=== PATIENT | male | born 1985 | race Caucasian/White ===

== ENCOUNTER 2020-09-30 18:28 | Emergency (ER) | payer MEDICAID, SELFPAY ==
[2020-09-30 18:40] VITALS: BP 123/70; PULSE 84; PULSE 86; RESP 19; TEMP 36.1; O2SAT 100; BMI 24.4
--- NOTE | 2020-09-30 19:11 | ED_ITS ---
HPI - General Adult General Chief complaint: General Medical Stated complaint: covid symptoms Time Seen by Provider: 09/30/20 19:11 History of Present Illness HPI narrative: Patient complains of body aches fatigue cough and chest pain when he coughs, no shortness of breath and a runny nose possible low-grade fever for 2 days, he has no known COVID contact, he has no nausea vomiting or diarrhea he is not short of breath now, no chills Related Data Previous Rx's Medication Instructions Recorded spironolactone 25 mg tablet 25 mg PO DAILY #90 tab 08/20/20 hydrocodone 10 mg-acetaminophen 1 tab PO Q8H PRN 30 Days #90 tab 09/19/20 325 mg tablet MDD 3 Allergies Allergy/AdvReac Type Severity Reaction Status Date / Time No Known Allergies Allergy Unverified 07/30/20 14:41 none Allergy Unknown Uncoded 06/03/20 00:00 Review of Systems Review of Systems: ROS is negative for headache neck pain nausea vomiting diarrhea shortness of breath palpitations There is no calf pain no leg swelling there is no rash there is no dizziness no confusion no weakness, there are no urinary symptoms Yes all other systems are reviewed and are negative [facility] Past Medical History Attestation statement: The following information was validated with the patient. 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 Source: nursing notes reviewed Medical History (Updated 09/30/20 @ 20:18 by NATALY Lux) Cirrhosis of liver Hepatic encephalopathy Low vitamin D level Portal hypertension with esophageal varices Unspecified polyarthropathy or polyarthritis, multiple sites Social History Social History Alcohol intake: never Smoking Status: Never smoker Use of substances other than those prescribed or required for medical reasons: No Advance Directives: No Advance Directives Information Provided: Yes Physical Exam Vital Signs: Vital Signs: Last Vital Signs Temp 97 F 09/30/20 18:40 Pulse 67 09/30/20 20:27 Resp 18 09/30/20 20:27 BP 110/56 L 09/30/20 20:27 Pulse Ox 98 09/30/20 20:27 Body Mass Index 24.4 Patient is A&O x3 comfortable-appearing no acute distress, no sign of any respiratory distress speaking full sentences The pharynx is clear, hydrated, no redness no tonsillar swelling no exudate The eyes have no redness or discharge The neck is supple The chest is clear to auscultation bilaterally with full symmetrical breath sounds The abdomen is soft nontender The extremities no rash no edema Neuro no focal deficit Course Course Course Narrative: Texture chest x-ray was reported by radiologist as normal with no evidence of pneumonia or heart failure The patient continues comfortable throughout visit, COVID swab was done and he was discharged Discharge Plan Discharge Clinical Impression: Acute viral syndrome Patient Disposition: Home, Self-Care Additional Instructions: Your chest x-ray was normal as was her oxygen level, your lungs were clear No sign of any dangerous condition at this time Return any time any worse condition or any concerns We will call you in 2-3 days with results of COVID swab Prescriptions: No Action spironolactone 25 mg tablet 25 mg PO DAILY Qty: 90 RF: 0 hydrocodone-acetaminophen 10-325 mg tablet 1 tab PO Q8H MDD 3 PRN (Reason: pain) 30 Days Qty: 90 RF: 0
--- NOTE | 2020-09-30 19:24 | XR_ITS ---
EXAMINATION: CHEST 1 VIEW CLINICAL INFORMATION: Cough. COMPARISON: January 07, 2018. TECHNIQUE: An AP view of the chest is provided. FINDINGS: The cardiac silhouette is not enlarged. The mediastinal and hilar contours are unremarkable. There are neither pleural effusions nor pneumothoraces. There are no consolidations. The osseous structures are stable. XR/XR chest 1V IMPRESSION: No evidence for acute disease.
[2020-09-30 20:27] VITALS: BP 110/56; PULSE 67; RESP 18; O2SAT 98
== END 2020-09-30 20:59 | disposition home or self-care (01) ==
PROVIDERS: Physician Assistant Medical; Emergency Provider Emergency Medicine; PCP Internal Medicine
DX: B34.9 Viral infection, unspecified (principal); R05 Cough; Z20.828 Contact with and (suspected) exposure to other viral communicable diseases
CPT/HCPCS: 71045; 99283; 99284; U0003

== ENCOUNTER → 2020-10-12 13:39 | Outpatient (BNVA) | payer MEDICAID, SELFPAY | PROVIDERS: PCP Internal Medicine; Referring Provider Internal Medicine; Visit Provider Internal Medicine Gastroenterology | DX: Z76.89 Persons encountering health services in other specified circumstances (principal) ==

== ENCOUNTER 2020-10-20 14:46 | Outpatient (REF) | payer MEDICAID, SELFPAY ==
--- NOTE | 2020-10-20 15:02 | ECG_ITS ---
Test Reason : PULM HTN, SOB Blood Pressure : / mmHG Vent. Rate : 073 BPM Atrial Rate : 073 BPM P-R Int : 156 ms QRS Dur : 108 ms QT Int : 428 ms P-R-T Axes : 066 096 026 degrees QTc Int : 471 ms Normal sinus rhythm Possible Right ventricular hypertrophy Abnormal ECG When compared with ECG of 07-JAN-2018 04:01, Incomplete right bundle branch block is no longer Present Referred By: Shanique Al Electronically Signed By:GIANNI MENESES
[2020-10-20 15:20] LABS: Basophils Percent Auto 0.7 % (0-2); MANUAL DIFF FLAG SCAN; PLT CLUMP 1; SCAN SMEAR FLAG 1
[2020-10-20 15:22] LABS: Eosinophils Percent Auto 2.1 % (0-4); Hematocrit 38.9 % (42-52); Hemoglobin 12.7 g/dl (14.0-18.0); Lymphocytes Absolute Auto 0.2 X10*3/uL (1.2-4.9); Lymphocytes Percent Auto 15.4 % (20-40); Mean Corpuscular HGB Conc 32.6 g/dl (31.0-36.0); Mean Corpuscular Hemoglobin 31.2 pg (27.0-33.0); Mean Corpuscular Volume 95.6 fL (80-98); Mean Platelet Volume 11.2 fL (9.4-12.4); Monocytes Absolute Auto 0.1 X10*3/uL (0.1-1.2); Monocytes Percent Auto 4.9 % (2-11); Neutrophils Absolute Auto 1.1 X10*3/uL (2.0-8.3); Neutrophils Percent Auto 76.9 % (45-73); Red Blood Count 4.07 X10*6/uL (4.60-5.80); Red Cell Distribution Width 14.3 % (11.0-16.0)
[2020-10-20 15:24] LABS: Platelet Count 50 X10*3/uL (160-400); White Blood Count 1.4 X10*3/uL (4.8-10.8)
[2020-10-20 15:25] LABS: INTERNATIONAL NORM RATIO 1.2 (0.9-1.1); Prothrombin Time 14.2 SEC (10.8-13.0)
[2020-10-20 15:35] LABS: Ammonia 38 umol/L (13-55)
[2020-10-20 15:48] LABS: SLIDE REVIEW VERIFIED
[2020-10-20 15:49] LABS: B Type Natriuretic Peptide 257 pg/mL (<100)
[2020-10-20 15:51] LABS: Alanine Aminotransferase 47 U/L (0-40); Albumin Level 3.5 g/dL (3.5-5.0); Anion Gap 13 (12-20); Aspartate Amino Transferase 46 U/L (5-37); Bilirubin Total 3.2 mg/dL (0.0-1.0); Blood Urea Nitrogen 13 mg/dL (9-16); Carbon Dioxide 24 mmol/L (22-29); Chloride 106 mmol/L (96-108); Estimated Glomerular Filt Rate > 60; Glucose Random 136 mg/dL (60-115); Magnesium 1.6 mg/dL (1.6-2.6); Sodium 139 mmol/L (135-145); Total Protein 6.6 g/dL (6.5-8.0)
[2020-10-20 16:04] LABS: Alkaline Phosphatase 607 U/L (39-117); Gamma Glutamyl Transpeptidase 534 U/L (11-51); TSH reflex Free T4 0.63 mIU/mL (0.32-4.0); Vitamin D 25-OH Total 18.3 ng/mL (>30)
== END 2020-10-20 14:47 | disposition home or self-care (01) ==
LOC: HO.LAB 14:46
PROVIDERS: Absent Provider Internal Medicine Pulmonary Disease; PCP Internal Medicine; Visit Provider Internal Medicine Gastroenterology
DX: Z01.818 Encounter for other preprocedural examination (principal); I27.20 Pulmonary hypertension, unspecified; R06.02 Shortness of breath; K74.60 Unspecified cirrhosis of liver; R79.89 Other specified abnormal findings of blood chemistry
CPT/HCPCS: 36415; 80053; 82140; 82306; 82977; 83735; 83880; 84443; 85025; 85060; 85610; 93005

== ENCOUNTER → 2021-03-08 14:23 | Outpatient (BNVA) | payer MEDICAID, SELFPAY ==
--- NOTE | 2021-03-23 18:06 | PM.GICN ---
History of Present Illness Data of Consult Service Date: 03/23/21 Primary Care Provider: Raymundo Costa MD HPI Reason for consult: Increased LFTs. 35 YM with cirrhosis presented to [facility] with headache, nausea, body aches and diarrhea: HPI narrative: 35-year-old male with a past medical history of pulmonary hypertension, GERD, hepatic encephalopathy, diabetes, polyarthropathy, portal hypertension, cirrhosis complaints of headache, diarrhea, nausea, body aches, chills, chest wall pain with coughing, shortness of breath since yesterday. No fever, abdominal pain or vomiting. Received pfizer vaccine (03/02) Lab evaluation showed an increase in LFTs from baseline. IMAGING STUDIES: 04/2020 ABD US SHOWED: Recanalized umbilical vein with middle portal vein measuring 1.8 cm. Hepatopedal flow in the portal vein. Cholelithiasis with echogenic debris and wall thickness of 0.3 cm. Splenomegaly with hypervascular dilated vessels ENDOSCOPIC STUDIES: Jun, 2011 upper endoscopy was performed by Dr. Grimes and showed 2+ esophageal varices and 1+ gastric varix, with spotty hemorrhagic submucosal changes throughout the gastric body. Patient complains of flu like symptoms for the past few days with low-grade fever, nausea, generalized body aches, chills. He denies abdominal pain, vomiting, change in appetite or weight. He denies recent change in bowel habits, constipation, diarrhea, black stools or rectal bleeding. Denies being on chronic anticoagulation. Patient denies known family history of liver disease, colon polyps, colon cancer or other GI malignancies. 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 Patient has a remote history of upper GI bleed from esophageal varices and was treated with band ligation followed by a Nadolol. He is being followed by the [facility] (Trina Fields,SCRUB WHEEL OPERATOR: Sandra Breen MD. Pt was seen on 05/[address] Grimes: 1. Unspecified cirrhosis of liver - K74.60 (Primary), Last [id number]-7.1, ammonia-27, Albumin_3.7, Bili-1.9. 2. Portal hypertension - K76.6, Pancytopenia, persists. 3. Low vitamin D level - E55.9 4. Pulmonary hypertension - I27.2, [facility] 5. Hepatic encephalopathy - K72.90, Ammonia 10/31--was 30 6. Unspecified inflammatory polyarthropathy - M06.4 Patient continues in recovery. He is following up on a regular basis with his Display Fabrication Supervisor @ [facility]. He is taking his meds as prescribed. I counselled him on results of labs. The Vit D was the biggest concern. He is now taking the replacement load 50K weekly for 12 weeks. With increased problems with joints in his right hand and hx of Inflamatory polyarthropathy, I think it is time that he resee Rheumatology. Will have him recall department for a management consultation. (He has continued on hydrocodone for > 1 year @ this time.) TELEVISIT: TOTAL VISIT TIME 15min/ 10min/09sec with patient counseling on reports and medications, review of records, management and coordination of care. I have asked him to discuss with Dr. Cooley a referral back to see [facility] Hepatology. His US was stable but with his complex situation I would like to have him reseen sot that if he runs into problems in the future he will be known by their Department. He seems to be invested in trying to stay healthy @ this time. Treatment 1. Unspecified cirrhosis of liver Notes: To pursue referral to HEPATOLOGY @ [facility] THROUGH HIS TRACTOR DISTRIBUTOR THERE. 2. Portal hypertension Refill Furosemide Tablet, 40 MG, 1 tablet, Orally, twice a day, 30 days, 60 Tablet, Refills 5, Notes: once- Refill Magnesium Oxide Tablet, 400 MG, 1 tablet, Orally, Once a day, 30 days, 30 Tablet, Refills 5 Continue Spironolactone Tablet, 25 MG, 1 tablet with food, Orally, Once a day, Notes: refill had been sent 3. Low vitamin D level Continue Vitamin D3 Capsule, 1.25 MG (65575 UT), 1 capsule, Orally, once a week 4. Hepatic encephalopathy Continue Xifaxan Tablet, 550 MG, 1 tablet, Orally, Twice a day, Notes: T 5. Unspecified inflammatory polyarthropathy Review of Systems Constitutional: Constitutional: Reports chills, Reports fatigue, Reports fever(s), Denies headache(s) and Denies weight loss Eyes: Eyes: Denies eye discharge and Denies irritation ENT: Reports Normal hearing present, Denies dysphagia, Denies dizziness and Denies headache(s) Cardiovascular: Cardiovascular: Denies chest pain, Denies leg edema and Denies dyspnea on exertion Respiratory: Respiratory: Denies cough and Denies dyspnea on exertion Gastrointestinal: Gastrointestinal: Denies abdominal pain, Denies change in bowel habits, Denies dysphagia, Denies heartburn and Reports nausea Genitourinary: Genitourinary: Denies dysuria Musculoskeletal: Musculoskeletal: Denies back pain and Denies arthralgias Integumentary/Breasts: Skin/Breast: Denies pruritus, Denies rash and Denies jaundice Neurologic: Reports Normal hearing present, Denies Abnormal speech present, Denies dizziness, Denies headache(s) and Denies seizure-like activity Psychiatric: Psychiatric: Denies anxiety, Denies depression and Denies panic attacks Endocrine: Endocrine: Denies cold intolerance, Reports fatigue, Denies flushing and Denies heat intolerance Hematologic/Lymphatic: Hematologic/Lymphatic: Denies easy bleeding and Denies easy bruising PMFSH Past Medical History Medical History Abnormal findings on esophagogastroduodenoscopy (EGD) Chronic right-sided congestive heart failure Cirrhosis of liver Diabetes 1.5, 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 Mother Diabetes Diverticulitis Maternal Grandmother Diabetes Surgical History Surgical History History of esophagogastroduodenoscopy (EGD) History of liver biopsy Hx of cardiac cath Social History Social History Household Members: Family Household Members Other:: Lives @ his uncle, sone comes daily for remote schooling and weekends. Housing: House Do you presently have visiting nurse or other home services: No Alcohol intake: never Patient Tobacco Use Status: Current someday Tobacco user Tobacco use type: Cigarette Smoked in Last 30 Days: Yes Use of substances other than those prescribed or required for medical reasons: No Are you DNR?: No Advance Directives: Yes Advance Directives Information Provided: Yes Advance Directives on File: No Advance Directives Date on File: 03/31/21 Recently lost weight without trying: No Nutrition Risks: No Nutritional Risk service: No Current occupational status: disabled Meds Allergies Allergy/AdvReac Type Severity Reaction Status Date / Time No Known Allergies Allergy Verified 05/19/21 09:37 Physical Exam Const: General: no acute distress and ill appearing Nutritional Appearance: average body habitus Orientation/consciousness: patient oriented x3 Limitations: no limitations HENMT: Head: Yes normal to inspection Ears: hearing grossly normal bilaterally Mouth: Normal oral and palatal mucosa present Eyes: Sclerae: sclerae normal Pupils: Equal, round and reactive pupils present Neck: Neck: Yes normal visual inspection Chest: Chest palpation & inspection: normal inspection of the chest Resp: Effort & Inspection: normal respiratory effort Auscultation: clear to auscultation bilaterally Cardio: Palpation: normal PMI Rate: regular rate Rhythm: regular rhythm Heart sounds: S1 normal heart sound present, S2 normal heart sound present and no murmurs GI: Palpation (GI): Soft to palpation, nontender and No hepatosplenomegaly present Auscultation: normal bowel sounds Rectal Exam - Male: Yes deferred Skin: General skin exam: no rashes or lesions noted Neuro: General: patient oriented x3, gait normal and moves all extremities Cranial nerves: Yes Equal, round and reactive pupils present and Yes Normal hearing present Speech: No Abnormal speech present Psych: Appearance: grossly normal Mental Status: mental status grossly normal Assessment and Plan (1) Transaminitis: (2) Hepatic encephalopathy: Status: Acute (3) Portal hypertension with esophageal varices: (4) Cirrhosis of liver: Status: Acute 35 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 Patient presented to [facility] with flu-like symptoms. Labs revealed an increase in LFTs from baseline. Increase in LFTs can be related to acute viral hepatitis, and drug toxicity or biliary obstruction (Past ultrasound showed gallstones). Patient is also at increased risk for HCC given underlying cirrhosis for the past several years. RECOMMENDATIONS: 1. Abd US to rule out biliary obstruction and screen for HCC 2. Check Hepatitis A, B and C serologies and EBV serology 3. Continue rifaximin for hepatic encephalopathy.
== END ==
PROVIDERS: PCP Internal Medicine; Visit Provider Internal Medicine Gastroenterology
DX: K74.60 Unspecified cirrhosis of liver (principal); I85.00 Esophageal varices without bleeding; K76.6 Portal hypertension; K72.90 Hepatic failure, unspecified without coma; R74.01 Elevation of levels of liver transaminase levels
CPT/HCPCS: 99222

== ENCOUNTER 2021-03-23 13:49 | Inpatient (IN) | payer MEDICARE, MEDICAID, SELFPAY ==
--- NOTE | ~2021-03-23 | US_ITS ---
EXAMINATION: US ABDOMEN LIMITED CLINICAL INFORMATION: Elevated LFTs.. COMPARISON: 05/05/2020 ultrasound TECHNIQUE: Real-time imaging of the right upper quadrant abdominal viscera. FINDINGS: PANCREAS: Partially obscured by overlying bowel gas LIVER: There is recanalization of the umbilical vein. Hepatopedal flow seen in the main portal vein. The liver is normal in size. The liver contour is normal. Parenchymal echogenicity is slightly increased. No focal hepatic lesion. There is no intrahepatic biliary duct dilatation seen. GALLBLADDER: Gallstone seen within the gallbladder. No evidence of wall thickening or pericholecystic fluid. COMMON BILE DUCT: Normal in caliber measuring 0.6 cm in diameter. RIGHT KIDNEY: Normal. No hydronephrosis. No renal calculi or focal parenchymal lesions. The kidney measures 12.1 cm in maximum dimension. FREE FLUID: None. US/US abdomen limited IMPRESSION: Recanalized umbilical vein again noted. Slightly increased hepatic echotexture but no focal hepatic lesions seen.
--- NOTE | ~2021-03-23 | XR_ITS ---
EXAMINATION: XR CHEST CLINICAL INFORMATION: Chest pain and shortness of breath COMPARISON: Previous chest x-ray most recent September 2020 TECHNIQUE: Frontal view of the chest was obtained. FINDINGS: The cardiac silhouette is enlarged but stable. There may be pulmonary venous redistribution. The lungs are otherwise clear. There is no pleural effusion or pneumothorax. Bony structures are unremarkable. XR/XR chest 1V IMPRESSION: Stable enlargement of the cardiac silhouette. Question pulmonary venous redistribution. No evidence of pulmonary edema.
--- NOTE | ~2021-03-23 | MR_ITS ---
EXAMINATION: MR ABDOMEN WITHOUT CONTRAST CLINICAL INFORMATION: Cirrhosis. Elevated bilirubin. COMPARISON: Ultrasound abdomen 03/23/2021 TECHNIQUE: MR abdomen is performed without gadolinium contrast. Heavily T2-weighted sequence performed for MRCP acquisition. FINDINGS: LUNG BASES: The visualized lung bases are unremarkable. LIVER, GALLBLADDER, AND BILIARY TREE: The liver is normal in size and signal with subtle nodularity of the contour. No focal hepatic lesion or biliary ductal dilatation is present. No ductal filling defects are noted. Stones are seen in the gallbladder lumen. No gallbladder wall thickening. There may be mild adjacent fluid along the margin of the liver. PANCREAS: Unremarkable. SPLEEN: The spleen is significantly enlarged, extending beyond the [id number] of this study. This measures at least 25 cm CC dimension. ADRENAL GLANDS: Unremarkable. KIDNEYS AND URETERS: The kidneys are normal in size and shape. No hydronephrosis. No perinephric stranding. GASTROINTESTINAL TRACT: No bowel obstruction. No ascites or fluid collection. ABDOMINAL WALL: No significant hernia is appreciated. LYMPH NODES: No lymphadenopathy. VASCULAR: Normal caliber aorta. Varices of the left upper quadrant. OSSEOUS STRUCTURES: Marrow signal normal. MR/MR MRCP IMPRESSION: Cirrhotic liver. Changes of portal hypertension with varices and marked splenomegaly. Normal appearance of the common bile duct with no filling defect.
[2021-03-23 14:04] VITALS: BP 111/52; PULSE 73; RESP 20; TEMP 37.1; O2SAT 95; BMI 25.0
[2021-03-23 14:34] LABS: COVID-19 Test Negative (Negative); IDNOW Serial# 9DD0AD1C
--- NOTE | 2021-03-23 14:36 | ECG_ITS ---
Test Reason : UPPER RESPIRATORY Blood Pressure : / mmHG Vent. Rate : 065 BPM Atrial Rate : 065 BPM P-R Int : 166 ms QRS Dur : 106 ms QT Int : 460 ms P-R-T Axes : 050 091 022 degrees QTc Int : 478 ms Normal sinus rhythm Possible Left atrial enlargement Right ventricular hypertrophy with repolarization abnormality Nonspecific T wave abnormality Prolonged QT Abnormal ECG When compared with ECG of 20-OCT-2020 15:13, T wave inversion now evident in Anterior leads Referred By: Chela Seth Electronically Signed By:Geo Soria
--- NOTE | 2021-03-23 14:37 | ED.GENADULT ---
HPI - General Adult General Chief complaint: Upper Respiratory Symptoms Stated complaint: FLU SYMPTONS Time Seen by Provider: 03/23/21 14:26 Source: patient Mode of arrival: ambulatory Limitations: no limitations History of Present Illness HPI narrative: 35-year-old male with a past medical history of pulmonary hypertension, GERD, hepatic encephalopathy, diabetes, polyarthropathy, portal hypertension, cirrhosis complaints of headache, diarrhea, nausea, body aches, chills, chest wall pain with coughing, shortness of breath since yesterday. No fever, abdominal pain or vomiting. Received [employer] vaccine (03/02) Related Data Home Medications Medication Instructions Recorded Confirmed lactulose 10 gram/15 mL oral 10 g PO DAILY 10/12/20 03/08/21 solution macitentan 10 mg tablet 10 mg PO DAILY 10/12/20 03/08/21 magnesium oxide 400 mg PO DAILY 10/12/20 03/08/21 selexipag 1,600 mcg tablet 1,600 mcg PO BID 10/12/20 03/08/21 sertraline 100 mg tablet 100 mg PO DAILY 10/12/20 03/08/21 sertraline 50 mg tablet 50 mg PO DAILY 10/12/20 03/08/21 sildenafil (pulm.hypertension) 20 20 mg PO TID 10/12/20 03/08/21 mg tablet gabapentin 300 mg capsule 300 mg PO BID 03/08/21 03/08/21 Previous Rx's Medication Instructions Recorded cholecalciferol (vitamin D3) 1,250 50,000 unit PO QWEEK 90 Days #12 10/22/20 mcg (50,000 unit) capsule cap cholecalciferol (vitamin D3) 50 50 mcg PO DAILY #90 cap 10/27/20 mcg (2,000 unit) capsule spironolactone 25 mg tablet 25 mg PO DAILY #90 tab 11/19/20 furosemide 40 mg tablet 40 mg PO BID #180 tab 11/29/20 rifaximin 550 mg tablet 550 mg PO BID #60 tab 11/29/20 hydrocodone 10 mg-acetaminophen 1 tab PO Q8H PRN 30 Days #90 tab 03/05/21 325 mg tablet MDD 3 magnesium oxide 400 mg PO DAILY 30 Days #60 tab 03/08/21 Allergies Allergy/AdvReac Type Severity Reaction Status Date / Time none Allergy Unknown none Uncoded 10/12/20 13:40 Review of Systems Review of Systems: Yes all other systems are reviewed and are negative Constitutional: Constitutional: Reports no additional constitutional complaints, Reports body ache(s), Reports chills, Denies fever(s), Reports headache(s) and Denies weakness Eyes: Eyes: Reports no additional eye complaints and Denies change in vision ENT: Reports system reviewed and no additional complaints, except as documented, Denies dizziness, Reports headache(s), Denies nasal congestion, Denies nasal discharge and Denies neck pain Cardiovascular: Cardiovascular: Reports no additional cardiovascular complaints, Reports chest pain, Denies leg edema and Reports dyspnea Respiratory: Respiratory: Reports no additional respiratory complaints, Reports cough and Reports dyspnea Gastrointestinal: Gastrointestinal: Reports no additional gastrointestinal complaints, Denies abdominal pain, Reports diarrhea, Reports nausea and Denies vomiting Genitourinary: Genitourinary: Denies urinary incontinence Musculoskeletal: Musculoskeletal: Reports no additional musculoskeletal complaints, Denies back pain, Denies arthralgias, Denies joint swelling, Denies neck pain, Denies numbness and Denies tingling Integumentary/Breasts: Skin/Breast: Reports system reviewed and no additional complaints, except as docu and Denies rash Neurologic: Reports system reviewed and no additional complaints, except as documented, Denies Abnormal speech present, Denies dizziness, Reports headache(s), Denies numbness, Denies tingling and Denies weakness PMFSH Past Medical History Attestation statement: The following information was validated with the patient. Source: old records reviewed and nursing notes reviewed Medical History Abnormal findings on esophagogastroduodenoscopy (EGD) Chronic right-sided congestive heart failure Cirrhosis of liver Diabetes 1.5, managed as type 2 Hepatic encephalopathy History of major depression Low vitamin D level Portal hypertension with esophageal varices Pulmonary hypertension Unspecified polyarthropathy or polyarthritis, multiple sites Surgical History History of esophagogastroduodenoscopy (EGD) History of liver biopsy Hx of cardiac cath Family History Family History Father No problems noted. Mother Diabetes Diverticulitis Maternal Grandmother Diabetes Social History Social History Household Members: Family and Other Household Members Other:: Lives @ his uncle, sone comes daily for remote schooling and weekends. Alcohol intake: never Smoking Status: Never smoker Use of substances other than those prescribed or required for medical reasons: No Advance Directives: Yes Advance Directives Information Provided: No Advance Directives on File: No Current occupational status: disabled Physical Exam Vital Signs: Vital Signs: Last Vital Signs Temp 98.3 F 03/23/21 16:23 Pulse 72 03/23/21 16:23 Resp 20 03/23/21 16:23 BP 123/64 03/23/21 16:23 Pulse Ox 98 03/23/21 16:23 Body Mass Index 25.0 Const: Other: chronically ill appearing Nutritional Appearance: thin Orientation/consciousness: patient oriented x3 Limitations: no limitations HENMT: Head: Yes normal to inspection Ears: hearing grossly normal bilaterally General nose exam: Normal external nose present Face and sinus: Yes normal facial exam Mouth: Normal oral and palatal mucosa present Throat: Yes posterior oropharynx normal Eyes: General: appearance normal, both eyes and all related structures Sclerae: scleral abnormal (scleral icteric) Pupils: Equal, round and reactive pupils present Neck: Neck: Yes normal visual inspection, Yes full ROM, Yes no lymphadenopathy and Yes no meningeal signs Chest: Chest palpation & inspection: normal inspection of the chest Resp: Effort & Inspection: normal respiratory effort Auscultation: clear to auscultation bilaterally Cardio: Rate: regular rate Rhythm: regular rhythm Peripheral pulses: Peripheral pulses 2+ throughout GI: Inspection: Yes normal to inspection Palpation (GI): Soft to palpation and nontender Auscultation: normal bowel sounds Back/Spine/Pelvis: Thoracic/Lumbar Spine: thoracic and lumbar spine normal to inspection Skin: General skin exam: no rashes or lesions noted Neuro: General: patient oriented x3, no meningeal signs, no focal motor deficits and normal sensation to monofilament Cranial nerves: Yes Equal, round and reactive pupils present Cognition (Neuro): normal cognition Speech: No Abnormal speech present Gait exam (Neuro): Normal gait present Motor exam (neuro): 5/5 motor strength present throughout Extrem: General: Yes normal to inspection, Yes no pedal edema and Yes no calf tenderness Course Course Course Narrative: 35-year-old male here with flu-like symptoms since yesterday. COVID screen negative. Will check labs including blood cultures and lactic acid, chest x-ray, EKG, UA, respiratory panel. 1649-UA is negative. X-ray negative for acute findings. COVID screen negative. Respiratory panel pending. Labs show thrombocytopenia at baseline, LFTs which have doubled since previous 10/20/2020. Will discuss with GI. ? acute hepatitis. 1700-discussed patient with Dr. Delgadillo from GI.. Recommended abdominal ultrasound to rule out acute miguel, portal vein thrombosis, liver carcinoma. Add on hepatitis panel, tylenol level. 1800-discussed with Maria Elena MIKE from Medicine who accepted admission. Medical Decision Making Medical Records Medical records reviewed: Yes I reviewed the patient's medical records. Lab Data Lab results reviewed: Yes I reviewed the patient's lab results. Result diagrams: 03/23/21 15:38 03/23/21 15:38 Labs: Lab Results 03/23/21 03/23/21 03/23/21 Range/Units 14:07 15:38 15:38 WBC 4.5 L (4.8-10.8) X10*3/uL RBC 4.57 L (4.60-5.80) X10*6/uL Hgb 14.6 (14.0-18.0) g/dl Hct 43.2 (42-52) % MCV 94.5 (80-98) fL MCH 31.9 (27.0-33.0) pg MCHC 33.8 (31.0-36.0) g/dl RDW 15.1 (11.0-16.0) % Plt Count 60 L (160-400) X10*3/uL MPV 10.7 (9.4-12.4) fL Immature Gran % (Auto) 0.2 (0.0-0.4) % Neut % (Auto) 86.2 H (45-73) % Lymph % (Auto) 6.7 L (20-40) % [place] % (Auto) 4.5 (2-11) % Eos % (Auto) 2.0 (0-4) % Baso % (Auto) 0.4 (0-2) % Lymph # (Auto) 0.3 L (1.2-4.9) X10*3/uL [place] # (Auto) 0.2 (0.1-1.2) X10*3/uL Eos # (Auto) 0.1 (0.0-0.4) X10*3/uL Baso # (Auto) 0.0 (0.0-0.2) X10*3/uL Abs Immat Gran (auto) 0.01 (0.00-0.03) X10*3/uL Absolute Neuts (auto) 3.9 (2.0-8.3) X10*3/uL Absolute Nucleated RBC 0.000 (0.0-0.012) X10*3/uL Nucleated RBC % (auto) 0.0 (0.0-0.2) /100WBC Smear Tech's Comments VERIFIED PT 14.6 H (10.8-13.0) SEC INR 1.2 H (0.9-1.1) Sodium (135-145) mmol/L Potassium (3.3-5.1) mmol/L Chloride (96-108) mmol/L Carbon Dioxide (22-29) mmol/L Anion Gap (12-20) BUN (9-16) mg/dL Creatinine (0.5-1.4) mg/dL Estim Creat Clear Calc Estimated GFR Random Glucose (60-115) mg/dL Lactic Acid (0.5-2.0) mmol/L Calcium (8.4-10.2) mg/dL Magnesium (1.6-2.6) mg/dL Total Bilirubin (0.0-1.0) mg/dL Direct Bilirubin (0.0-0.5) mg/dL AST (5-37) U/L ALT (0-40) U/L Alkaline Phosphatase (39-117) U/L Ammonia (13-55) umol/L Troponin I High Sens (<3.5-35.0) ng/L Total Protein (6.5-8.0) g/dL Albumin (3.5-5.0) g/dL Urine Color Urine Appearance Urine pH (5.0-8.0) Ur Specific [place] (1.005-1.025) Urine Protein (NEG-TRACE) MG/DL Urine Glucose (UA) (NEG) MG/DL Urine Ketones (NEG) MG/DL Urine Blood (NEG) Urine Nitrite (NEG) Ur Leukocyte Esterase (NEG) Acetaminophen (<30) mcg/mL COVID-19 (MICHELE) Negative (Negative) COVID-19 Clin Com See Note 03/23/21 03/23/21 03/23/21 Range/Units 15:38 15:38 15:38 WBC (4.8-10.8) X10*3/uL RBC (4.60-5.80) X10*6/uL Hgb (14.0-18.0) g/dl Hct (42-52) % MCV (80-98) fL MCH (27.0-33.0) pg MCHC (31.0-36.0) g/dl RDW (11.0-16.0) % Plt Count (160-400) X10*3/uL MPV (9.4-12.4) fL Immature Gran % (Auto) (0.0-0.4) % Neut % (Auto) (45-73) % Lymph % (Auto) (20-40) % [place] % (Auto) (2-11) % Eos % (Auto) (0-4) % Baso % (Auto) (0-2) % Lymph # (Auto) (1.2-4.9) X10*3/uL [place] # (Auto) (0.1-1.2) X10*3/uL Eos # (Auto) (0.0-0.4) X10*3/uL Baso # (Auto) (0.0-0.2) X10*3/uL Abs Immat Gran (auto) (0.00-0.03) X10*3/uL Absolute Neuts (auto) (2.0-8.3) X10*3/uL Absolute Nucleated RBC (0.0-0.012) X10*3/uL Nucleated RBC % (auto) (0.0-0.2) /100WBC Smear Tech's Comments PT (10.8-13.0) SEC INR (0.9-1.1) Sodium 140 (135-145) mmol/L Potassium 4.0 (3.3-5.1) mmol/L Chloride 104 (96-108) mmol/L Carbon Dioxide 26 (22-29) mmol/L Anion Gap 14 (12-20) BUN 11 (9-16) mg/dL Creatinine 0.73 (0.5-1.4) mg/dL Estim Creat Clear Calc 156.5 Estimated GFR > 60 Random Glucose 122 H (60-115) mg/dL Lactic Acid 0.8 (0.5-2.0) mmol/L Calcium 9.1 D (8.4-10.2) mg/dL Magnesium 1.5 L (1.6-2.6) mg/dL Total Bilirubin 7.0 H (0.0-1.0) mg/dL Direct Bilirubin 4.0 H (0.0-0.5) mg/dL AST 73 H (5-37) U/L ALT 73 H (0-40) U/L Alkaline Phosphatase 1142 H D (39-117) U/L Ammonia (13-55) umol/L Troponin I High Sens < 3.5 (<3.5-35.0) ng/L Total Protein 7.0 (6.5-8.0) g/dL Albumin 3.8 (3.5-5.0) g/dL Urine Color Urine Appearance Urine pH (5.0-8.0) Ur Specific [place] (1.005-1.025) Urine Protein (NEG-TRACE) MG/DL Urine Glucose (UA) (NEG) MG/DL Urine Ketones (NEG) MG/DL Urine Blood (NEG) Urine Nitrite (NEG) Ur Leukocyte Esterase (NEG) Acetaminophen 1 (<30) mcg/mL COVID-19 (MICHELE) (Negative) COVID-19 Clin Com 03/23/21 03/23/21 Range/Units 15:38 16:18 WBC (4.8-10.8) X10*3/uL RBC (4.60-5.80) X10*6/uL Hgb (14.0-18.0) g/dl Hct (42-52) % MCV (80-98) fL MCH (27.0-33.0) pg MCHC (31.0-36.0) g/dl RDW (11.0-16.0) % Plt Count (160-400) X10*3/uL MPV (9.4-12.4) fL Immature Gran % (Auto) (0.0-0.4) % Neut % (Auto) (45-73) % Lymph % (Auto) (20-40) % [place] % (Auto) (2-11) % Eos % (Auto) (0-4) % Baso % (Auto) (0-2) % Lymph # (Auto) (1.2-4.9) X10*3/uL [place] # (Auto) (0.1-1.2) X10*3/uL Eos # (Auto) (0.0-0.4) X10*3/uL Baso # (Auto) (0.0-0.2) X10*3/uL Abs Immat Gran (auto) (0.00-0.03) X10*3/uL Absolute Neuts (auto) (2.0-8.3) X10*3/uL Absolute Nucleated RBC (0.0-0.012) X10*3/uL Nucleated RBC % (auto) (0.0-0.2) /100WBC Smear Tech's Comments PT (10.8-13.0) SEC INR (0.9-1.1) Sodium (135-145) mmol/L Potassium (3.3-5.1) mmol/L Chloride (96-108) mmol/L Carbon Dioxide (22-29) mmol/L Anion Gap (12-20) BUN (9-16) mg/dL Creatinine (0.5-1.4) mg/dL Estim Creat Clear Calc Estimated GFR Random Glucose (60-115) mg/dL Lactic Acid (0.5-2.0) mmol/L Calcium (8.4-10.2) mg/dL Magnesium (1.6-2.6) mg/dL Total Bilirubin (0.0-1.0) mg/dL Direct Bilirubin (0.0-0.5) mg/dL AST (5-37) U/L ALT (0-40) U/L Alkaline Phosphatase (39-117) U/L Ammonia 36 (13-55) umol/L Troponin I High Sens (<3.5-35.0) ng/L Total Protein (6.5-8.0) g/dL Albumin (3.5-5.0) g/dL Urine Color YELLOW Urine Appearance CLEAR Urine pH 6.0 (5.0-8.0) Ur Specific [place] 1.025 (1.005-1.025) Urine Protein NEG (NEG-TRACE) MG/DL Urine Glucose (UA) NEG (NEG) MG/DL Urine Ketones NEG (NEG) MG/DL Urine Blood NEG (NEG) Urine Nitrite NEG (NEG) Ur Leukocyte Esterase NEG (NEG) Acetaminophen (<30) mcg/mL COVID-19 (MICHELE) (Negative) COVID-19 Clin Com Imaging Data Chest x-ray: Attestation: I personally reviewed and interpreted this imaging study as follows: Radiologist's impression: EXAMINATION: XR CHEST CLINICAL INFORMATION: Chest pain and shortness of breath COMPARISON: Previous chest x-ray most recent September 2020 TECHNIQUE: Frontal view of the chest was obtained. FINDINGS: The cardiac silhouette is enlarged but stable. There may be pulmonary venous redistribution. The lungs are otherwise clear. There is no pleural effusion or pneumothorax. Bony structures are unremarkable. XR/XR chest 1V IMPRESSION: Stable enlargement of the cardiac silhouette. Question pulmonary venous redistribution. No evidence of pulmonary edema. ECG Data Attestation: I personally reviewed and interpreted this ECG as follows: Interpretation: Normal sinus rhythm with rate of 65, right ventricular hypertrophy with ST changes in leads V1 through V3 which are unchanged when compared to EKG 10/20/2020. Prolonged QTC 478 Discharge Plan Discharge Clinical Impression: Transaminitis Patient Disposition: Admitted As Inpatient
[2021-03-23 15:52] LABS: Basophils Percent Auto 0.4 % (0-2); Eosinophils Absolute Auto 0.1 X10*3/uL (0.0-0.4); Hematocrit 43.2 % (42-52); Hemoglobin 14.6 g/dl (14.0-18.0); Imm Gran Abs Auto 0.01 X10*3/uL (0.00-0.03); Imm Gran Pct Auto 0.2 % (0.0-0.4); Lymphocytes Absolute Auto 0.3 X10*3/uL (1.2-4.9); Lymphocytes Percent Auto 6.7 % (20-40); MANUAL DIFF FLAG SCAN; Mean Corpuscular HGB Conc 33.8 g/dl (31.0-36.0); Mean Corpuscular Hemoglobin 31.9 pg (27.0-33.0); Mean Corpuscular Volume 94.5 fL (80-98); Mean Platelet Volume 10.7 fL (9.4-12.4); Monocytes Absolute Auto 0.2 X10*3/uL (0.1-1.2); Monocytes Percent Auto 4.5 % (2-11); Neutrophils Absolute Auto 3.9 X10*3/uL (2.0-8.3); Neutrophils Percent Auto 86.2 % (45-73); Red Blood Count 4.57 X10*6/uL (4.60-5.80); Red Cell Distribution Width 15.1 % (11.0-16.0); SCAN SMEAR FLAG 1; White Blood Count 4.5 X10*3/uL (4.8-10.8)
[2021-03-23 15:55] LABS: INTERNATIONAL NORM RATIO 1.2 (0.9-1.1); Platelet Count 60 X10*3/uL (160-400); Prothrombin Time 14.6 SEC (10.8-13.0)
[2021-03-23 16:04] LABS: Ammonia 36 umol/L (13-55)
[2021-03-23 16:07] LABS: Lactic Acid 0.8 mmol/L (0.5-2.0)
[2021-03-23 16:16] LABS: Alanine Aminotransferase 73 U/L (0-40); Albumin Level 3.8 g/dL (3.5-5.0); Alkaline Phosphatase 1142 U/L (39-117); Anion Gap 14 (12-20); Aspartate Amino Transferase 73 U/L (5-37); Blood Urea Nitrogen 11 mg/dL (9-16); Calcium 9.1 mg/dL (8.4-10.2); Carbon Dioxide 26 mmol/L (22-29); Chloride 104 mmol/L (96-108); Creatinine Clr Calc Pharmacy 156.5; Estimated Glomerular Filt Rate > 60; Glucose Random 122 mg/dL (60-115); Magnesium 1.5 mg/dL (1.6-2.6); Sodium 140 mmol/L (135-145); Troponin-I High Sensitivity < 3.5 ng/L (<3.5-35.0)
[2021-03-23 16:23] VITALS: BP 123/64; PULSE 72; RESP 20; TEMP 36.8; O2SAT 98
[2021-03-23 16:28] LABS: Glucose Urine UA NEG (NEG); Leukocyte Esterase Urine NEG (NEG); Nitrite Urine NEG (NEG); Specific Gravity - Urine 1.025 (1.005-1.025); Urine Blood NEG (NEG); Urine Ketones NEG (NEG); Urine Protein NEG (NEG-TRACE)
[2021-03-23 16:30] LABS: Appearance Urine CLEAR; Color Urine YELLOW
[2021-03-23 16:31] LABS: SLIDE REVIEW VERIFIED
[2021-03-23 16:31] LABS: Adenovirus PCR Not Detected (Not Detect.); Bordetella parapertussis PCR Not Detected (Not Detect.); Bordetella pertussis PCR Not Detected (Not Detect.); Chlamydia pneumoniae PCR Not Detected (Not Detect.); Coronavirus 229E PCR Not Detected (Not Detect.); Coronavirus HKU1 PCR Not Detected (Not Detect.); Coronavirus NL63 PCR Not Detected (Not Detect.); Coronavirus OC43 PCR Not Detected (Not Detect.); Human metapneumovirus PCR Not Detected (Not Detect.); Influenza A PCR Not Detected (Not Detect.); Influenza B PCR Not Detected (Not Detect.); Mycoplasma pneumoniae PCR Not Detected (Not Detect.); Parainfluenza 1 PCR Not Detected (Not Detect.); Parainfluenza 2 PCR Not Detected (Not Detect.); Parainfluenza 3 PCR Not Detected (Not Detect.); Parainfluenza 4 PCR Not Detected (Not Detect.); RSV PCR Not Detected (Not Detect.); SARS-CoV-2 PCR Not Detected (Not Detect.)
[2021-03-23] MEDS: Magnesium Sulfate/H2O 2 GM/50 ML PIGGYBACK IV (16:48)
--- NOTE | 2021-03-23 17:31 | PC.NURSE ---
pt labs have been drawn, consulted w gi regarding pt case. plan for inpt admission. megan.
[2021-03-23 17:38] LABS: Acetaminophen LAB 1 mcg/mL (<30)
--- NOTE | 2021-03-23 19:49 | PM.IMHP ---
History of Present Illness Date of Service: 03/23/21 Chief Complaint: Flu Like symptoms 35-year-old male with past medical history of diabetes, liver cirrhosis, history of hepatic encephalopathy, portal hypertension with esophageal varices, pulmonary hypertension, arthritis, CHF, vitamin-D deficiency, depression presented to the hospital with a chief complaint of flu-like symptoms for the past to 3 days. Reports he has been having headaches, body aches, done nausea, diarrhea for the past 2-3 days. Reports he has poor intake. Denies any chest pain palpitations. Denies any lightheadedness dizziness. Complains of chills. Denies any abdominal pain, denies any bleeding. Review of all other systems is negative except mentioned above ER course: Per ER team patient noted to have elevated liver enzymes, elevated alk-phos compared to the prior numbers; discussed with Gastroenterology who recommended admission. Right upper quadrant ultrasound showed chronic findings but no acute findings, no gallstones. [facility] Medical History Abnormal findings on esophagogastroduodenoscopy (EGD) Chronic right-sided congestive heart failure Cirrhosis of liver Diabetes 1.5, managed as type 2 Hepatic encephalopathy History of major depression Low vitamin D level Portal hypertension with esophageal varices Pulmonary hypertension Unspecified polyarthropathy or polyarthritis, multiple sites Family History Father No problems noted. Mother Diabetes Diverticulitis Maternal Grandmother Diabetes Surgical History History of esophagogastroduodenoscopy (EGD) History of liver biopsy Hx of cardiac cath Social History Household Members: Family Household Members Other:: Lives @ his uncle, sone comes daily for remote schooling and weekends. Both parents involved: Yes Housing: House Do you presently have visiting nurse or other home services: No Alcohol intake: never Smoking Status: Current every day smoker Advance Directives Date on File: 03/31/21 service: No Current occupational status: disabled Meds Allergies Allergy/AdvReac Type Severity Reaction Status Date / Time none Allergy Unknown none Uncoded 10/12/20 13:40 Active Medications: Current Medications Generic Name Dose Route Start Last Admin Trade Name Naun PRN Reason Stop Dose Admin Sodium Chloride 1,000 mls @ 100 mls/hr 03/23/21 19:45 Ns IVCONT .Q10H [facility] Ondansetron HCl 4 mg 03/23/21 19:44 Ondansetron Hcl 4 Mg/2 Ml Vial IVPUSH Q8H PRN Nausea and Vomiting Pharmacy Consult 1 each 03/23/21 17:08 Consult Rx Perform Med Rec MISCELLANE ONCE PRN Consult order Sodium Chloride 3 ml 03/24/21 00:00 0.9 % Sodium Chloride Flush 3 Ml Syringe IVFLUSH QSHIFT [facility] Home Medications Medication Instructions Recorded Confirmed Last Taken Type macitentan 10 mg tablet 10 mg PO DAILY 10/12/20 03/23/21 03/23/21 History magnesium oxide 400 mg PO DAILY 10/12/20 03/23/21 03/23/21 History selexipag 1,600 mcg tablet 1,600 mcg PO BID 10/12/20 03/23/21 03/23/21 History sertraline 100 mg tablet 100 mg PO DAILY 10/12/20 03/23/21 03/23/21 History sertraline 50 mg tablet 50 mg PO DAILY 10/12/20 03/23/21 03/23/21 History sildenafil (pulm.hypertension) 20 20 mg PO TID 10/12/20 03/23/21 03/23/21 13:00 History mg tablet gabapentin 300 mg capsule 300 mg PO BID 03/08/21 03/23/21 03/23/21 History furosemide 40 mg PO DAILY 03/23/21 03/23/21 03/23/21 History multivitamin 1 tab PO DAILY 03/23/21 03/23/21 03/23/21 History Physical Exam Vital Signs and Narrative: Vital Signs: Last Vital Signs Temp 98.3 F 03/23/21 16:23 Pulse 72 03/23/21 16:23 Resp 20 03/23/21 16:23 BP 123/64 03/23/21 16:23 Pulse Ox 98 03/23/21 16:23 Body Mass Index 25.0 Gen: Appears be in no acute distress HEENT: NCAT, Moist mucosa. Pulmonary: Vesicular breath sounds, fair air entry CVS: Murmur+ Abdomen: BS+, Soft, Nontender Extremities: Warm well perfused Neuro: Alert and awake. Results Labs CBC and Chem 7: 03/24/21 09:23 03/24/21 09:23 Labs: Laboratory Results - last 24 hr 03/23/21 03/23/21 03/23/21 14:07 15:38 15:38 MCV 94.5 MCH 31.9 MCHC 33.8 RDW 15.1 Plt Count 60 L MPV 10.7 Immature Gran % (Auto) 0.2 Neut % (Auto) 86.2 H Lymph % (Auto) 6.7 L [place] % (Auto) 4.5 Eos % (Auto) 2.0 Baso % (Auto) 0.4 Lymph # (Auto) 0.3 L [place] # (Auto) 0.2 Eos # (Auto) 0.1 Baso # (Auto) 0.0 Abs Immat Gran (auto) 0.01 Absolute Neuts (auto) 3.9 Absolute Nucleated RBC 0.000 Nucleated RBC % (auto) 0.0 Smear Tech's Comments VERIFIED PT 14.6 H INR 1.2 H Anion Gap Estim Creat Clear Calc Estimated GFR Random Glucose Lactic Acid Calcium Magnesium Total Bilirubin Direct Bilirubin AST ALT Alkaline Phosphatase Ammonia Troponin I High Sens Total Protein Albumin Urine Color Urine Appearance Urine pH Ur Specific [place] Urine Protein Urine Glucose (UA) Urine Ketones Urine Blood Urine Nitrite Ur Leukocyte Esterase Acetaminophen COVID-19 (MICHELE) Negative COVID-19 Clin Com See Note 03/23/21 03/23/21 03/23/21 15:38 15:38 15:38 MCV MCH MCHC RDW Plt Count MPV Immature Gran % (Auto) Neut % (Auto) Lymph % (Auto) [place] % (Auto) Eos % (Auto) Baso % (Auto) Lymph # (Auto) [place] # (Auto) Eos # (Auto) Baso # (Auto) Abs Immat Gran (auto) Absolute Neuts (auto) Absolute Nucleated RBC Nucleated RBC % (auto) Smear Tech's Comments PT INR Anion Gap 14 Estim Creat Clear Calc 156.5 Estimated GFR > 60 Random Glucose 122 H Lactic Acid 0.8 Calcium 9.1 D Magnesium 1.5 L Total Bilirubin 7.0 H Direct Bilirubin 4.0 H AST 73 H ALT 73 H Alkaline Phosphatase 1142 H D Ammonia Troponin I High Sens < 3.5 Total Protein 7.0 Albumin 3.8 Urine Color Urine Appearance Urine pH Ur Specific [place] Urine Protein Urine Glucose (UA) Urine Ketones Urine Blood Urine Nitrite Ur Leukocyte Esterase Acetaminophen 1 COVID-19 (MICHELE) COVID-19 Clin Com 03/23/21 03/23/21 15:38 16:18 MCV MCH MCHC RDW Plt Count MPV Immature Gran % (Auto) Neut % (Auto) Lymph % (Auto) [place] % (Auto) Eos % (Auto) Baso % (Auto) Lymph # (Auto) [place] # (Auto) Eos # (Auto) Baso # (Auto) Abs Immat Gran (auto) Absolute Neuts (auto) Absolute Nucleated RBC Nucleated RBC % (auto) Smear Tech's Comments PT INR Anion Gap Estim Creat Clear Calc Estimated GFR Random Glucose Lactic Acid Calcium Magnesium Total Bilirubin Direct Bilirubin AST ALT Alkaline Phosphatase Ammonia 36 Troponin I High Sens Total Protein Albumin Urine Color YELLOW Urine Appearance CLEAR Urine pH 6.0 Ur Specific [place] 1.025 Urine Protein NEG Urine Glucose (UA) NEG Urine Ketones NEG Urine Blood NEG Urine Nitrite NEG Ur Leukocyte Esterase NEG Acetaminophen COVID-19 (MICHELE) COVID-19 Clin Com Imaging Radiologist's Impressions: Impressions Chest X-Ray 03/23/21 14:36 IMPRESSION: Stable enlargement of the cardiac silhouette. Question pulmonary venous redistribution. No evidence of pulmonary edema. Abdomen Ultrasound 03/23/21 17:06 IMPRESSION: Recanalized umbilical vein again noted. Slightly increased hepatic echotexture but no focal hepatic lesions seen. Assessment and Plan (1) Transaminitis: 35-year-old male with past medical history of diabetes, liver cirrhosis, history of hepatic encephalopathy, depression, portal hypertension, esophageal varices presented to the hospital with a chief complaint of flu-like symptoms. Noted to have transaminitis. Transaminitis: Will send acute hepatitis panel. Will also send Tylenol and salicylate levels. Seen by gastroenterology. Right upper quadrant ultrasound showed chronic findings. Monitor liver numbers. Avoid hepatotoxic medications. Supportive care History of esophageal varices: Patient denies any signs of bleeding. Will monitor. Diabetes: Insulin sliding scale Hx Pulm HTN: c/w Home Opsumit, macitentan and Selexipag All other chronic conditions, home medications will be continued once med rec is done DVT prophylaxis: SCD boots Code status: Full code
[2021-03-23] MEDS: 0.9 % Sodium Chloride 1,000 ML 100 ML IVCONT (19:53)
[2021-03-23 19:55] VITALS: BP 118/63; PULSE 65; RESP 15; O2SAT 98
[2021-03-23 20:00] VITALS: BP 134/63; PULSE 74; RESP 18; TEMP 36.9; O2SAT 96
[2021-03-23 20:59] LABS: Acetaminophen LAB < 1 mcg/mL (<30); Salicylate < 5.0 mg/dL (15-30)
[2021-03-23 22:03] LABS: Glucose, Whole Blood 182 mg/dL (60-115)
[2021-03-23] MEDS: Gabapentin 300 MG CAPSULE PO (22:14)
[2021-03-23] MEDS: rifAXIMin 550 MG TABLET PO (22:14)
[2021-03-23] MEDS: Sildenafil Citrate 20 MG TABLET PO (22:15)
[2021-03-23] MEDS: 0.9 % Sodium Chloride Flush 3 ML SYRINGE IVFLUSH (22:15)
[2021-03-23] MEDS: Insulin Lispro 100 UNIT/ML 3 ML VIAL SUBCUT (22:15)
[2021-03-23 23:28] VITALS: BP 114/57; PULSE 77; RESP 18; TEMP 37.2; O2SAT 96
[2021-03-24] VITALS (8 sets, daily range): BP systolic 110–125; BP diastolic 54–66; PULSE 68–80; RESP 15–20; TEMP 36.3–36.9; O2SAT 93–96
[2021-03-24] MEDS: 0.9 % Sodium Chloride 1,000 ML 100 ML IVCONT ×2 (04:00→15:00)
[2021-03-24 07:14] LABS: Glucose, Whole Blood 129 mg/dL (60-115)
[2021-03-24 08:15] LABS: HBc Num1 0.13 S/CO (0.00-0.79); HBsAGNum1 0.26 S/CO (0.00-0.99); Hepatitis B Core Antibody Nonreactive (Nonreactive); Hepatitis B Surface Antigen Negative (Negative); ~Hepatitis B Surface Antibody REACTIVE (Nonreactive)
[2021-03-24 08:41] LABS: Hepatitis A Antibody IgM 0.15 Index (0-0.79); ~HepC Num1 0.08 S/CO (0.00-0.79); ~Hepatitis A Antibody IgM Nonreactive (Nonreactive); ~Hepatitis C Antibody Nonreactive (Nonreactive)
[2021-03-24] MEDS: rifAXIMin 550 MG TABLET PO ×2 (09:19→20:39)
[2021-03-24] MEDS: Magnesium Oxide 400 MG TABLET PO (09:19)
[2021-03-24] MEDS: Sertraline HCL 50 MG TABLET PO (09:20)
[2021-03-24] MEDS: Multivitamin TABLET 1 TAB PO (09:20)
[2021-03-24] MEDS: Cholecalciferol (Vitamin D3) 25 MCG TABLET 50 MCG PO (09:20)
[2021-03-24] MEDS: Gabapentin 300 MG CAPSULE PO ×2 (09:20→20:39)
[2021-03-24] MEDS: Spironolactone 25 MG TABLET PO (09:20)
[2021-03-24] MEDS: Sertraline HCL 100 MG TABLET PO (09:20)
[2021-03-24] MEDS: Sildenafil Citrate 20 MG TABLET PO ×3 (09:21→20:39)
[2021-03-24 09:44] LABS: Rhino/Enterovirus PCR Detected (Not Detect.)
--- NOTE | 2021-03-24 09:44 | P.CDIC_ITS ---
CDI Concurrent Query Service Date: 03/24/21 Documentation Clarification: Please clarify if you are treating a proba ble/suspected/likely or confirmed: LABS: Hypomagnesemia Please specify if known Hypomagnesemia Provider Response: Other Other Diagnosis: hypomagnesemia PLEASE DO NOT DELETE/MODIFY EXISTING CONTENT Additional information is needed in order to code to the highest accuracy and appropriate Severity of Illness (SOI). Please clarify the information noted below in your progress notes and discharge summary. Risk Factors/Clinical Indicators/Treatments LAB FINDINGS: magnesium 1.5 L IV magnesium oxide CDS: Yamileth Darling CCS, CDIS Contact Number: [phone]. [phone] Please Review the information above and exercise your independent professional judgment in responding to the query. If you concur, pleas document in the PROGRESS NOTES and DISCHARGE SUMMARY. If you do not agree with the query, please document in the query above. THIS QUERY IS PART OF THE PERMANENT MEDICAL RECORD
--- NOTE | 2021-03-24 10:22 | P.CDIC_ITS ---
CDI Concurrent Query Service Date: 03/24/21 Documentation Clarification: Please clarify if you are treating a proba ble/suspected/likely or confirmed: test test Provider Response: Other Other Diagnosis: test PLEASE DO NOT DELETE/MODIFY EXISTING CONTENT Additional information is needed in order to code to the highest accuracy and appropriate Severity of Illness (SOI). Please clarify the information noted below in your progress notes and discharge summary. Risk Factors/Clinical Indicators/Treatments CDS: Yamileth Darling ccs, cdis Contact Number: [phone] Please Review the information above and exercise your independent professional judgment in responding to the query. If you concur, pleas document in the PROGRESS NOTES and DISCHARGE SUMMARY. If you do not agree with the query, please document in the query above. THIS QUERY IS PART OF THE PERMANENT MEDICAL RECORD
[2021-03-24 10:35] LABS: Basophils Percent Auto 0.6 % (0-2); Eosinophils Absolute Auto 0.1 X10*3/uL (0.0-0.4); Eosinophils Percent Auto 3.1 % (0-4); Hematocrit 40.6 % (42-52); Hemoglobin 13.6 g/dl (14.0-18.0); INTERNATIONAL NORM RATIO 1.3 (0.9-1.1); Imm Gran Abs Auto 0.01 X10*3/uL (0.00-0.03); Imm Gran Pct Auto 0.3 % (0.0-0.4); Lymphocytes Absolute Auto 0.2 X10*3/uL (1.2-4.9); Lymphocytes Percent Auto 7.4 % (20-40); MANUAL DIFF FLAG SCAN; Mean Corpuscular HGB Conc 33.5 g/dl (31.0-36.0); Mean Corpuscular Hemoglobin 31.5 pg (27.0-33.0); Mean Platelet Volume 12.4 fL (9.4-12.4); Monocytes Absolute Auto 0.2 X10*3/uL (0.1-1.2); Monocytes Percent Auto 5.6 % (2-11); Neutrophils Absolute Auto 2.7 X10*3/uL (2.0-8.3); Prothrombin Time 14.9 SEC (10.8-13.0); Red Blood Count 4.32 X10*6/uL (4.60-5.80); Red Cell Distribution Width 14.9 % (11.0-16.0); SCAN SMEAR FLAG 1; White Blood Count 3.2 X10*3/uL (4.8-10.8)
[2021-03-24 10:45] LABS: Platelet Count 55 X10*3/uL (160-400)
[2021-03-24 10:54] LABS: Magnesium 1.6 mg/dL (1.6-2.6)
[2021-03-24 11:01] LABS: Alanine Aminotransferase 67 U/L (0-40); Albumin Level 3.4 g/dL (3.5-5.0); Alkaline Phosphatase 1052 U/L (39-117); Anion Gap 12 (12-20); Aspartate Amino Transferase 74 U/L (5-37); Bilirubin Direct 5.1 mg/dL (0.0-0.5); Blood Urea Nitrogen 11 mg/dL (9-16); Calcium 8.2 mg/dL (8.4-10.2); Carbon Dioxide 25 mmol/L (22-29); Chloride 105 mmol/L (96-108); Creatinine Clr Calc Pharmacy 165.6; Estimated Glomerular Filt Rate > 60; Glucose Random 129 mg/dL (60-115); Potassium 3.9 mmol/L (3.3-5.1); Sodium 138 mmol/L (135-145); Total Protein 6.3 g/dL (6.5-8.0)
--- NOTE | 2021-03-24 11:11 | P.PNIM_ITS ---
Subjective Subjective Date of Service: 03/24/21 Interval History: seen and examined this AM feels the same as yesterday - weak, fatigued denies n/v. reports chronic diarrhea (unchanged) reports some abdominal discomfort a few days prior to arrival, but okay now denies any fevers or chills ROS General - no fevers or chills Cardiovascular - no chest pain Respiratory - no shortness of breath or cough Abdominal- no abdominal pain, nausea, vomiting, +diarrhea (chronic) Physical Exam Vital Signs: Vital Signs: Last Vital Signs Temp 98.5 F 03/24/21 07:04 Pulse 73 03/24/21 09:20 Resp 18 03/24/21 07:04 BP 121/61 03/24/21 09:20 Pulse Ox 95 03/24/21 07:04 Body Mass Index 25.0 Const: Other: General - no acute distress, appears comfortable Cardiovascular - regular rate and rhythm, S1-S2 Lungs - normal respiratory effort, clear to auscultation bilaterally, no w heezing Abdomen - soft, nontender, no rebound or guarding Extremities - no edema bilaterally Neuro - awake and alert, no focal deficits Skin - Juandice Objective Data Current Medications Generic Name Dose Route Start Last Admin Trade Name Freq PRN Reason Stop Dose Admin Hydrocodone Bitart/Acetaminophen 1 tab 03/23/21 20:48 03/24/21 09:28 Hydrocodone Bit/Acetam 10/325 Tablet PO 1 tab Q8H PRN Administration pain Furosemide 40 mg 03/24/21 09:00 03/24/21 09:19 Furosemide 40 Mg Tablet PO Not Given DAILY BETTY Protocol Gabapentin 300 mg 03/23/21 21:00 03/24/21 09:20 Gabapentin 300 Mg Capsule PO 300 mg BID BETTY Administration Sodium Chloride 1,000 mls @ 100 mls/hr 03/23/21 19:45 03/24/21 04:00 Ns IVCONT 100 mls/hr .Q10H BETTY Administration Insulin Human Lispro 0 unit 03/23/21 21:00 03/24/21 07:37 Insulin Lispro 100 Unit/Ml 3 Ml Vial SUBCUT Not Given QIDACHS BETTY Protocol Magnesium Oxide 400 mg 03/24/21 09:00 03/24/21 09:19 Magnesium Oxide 400 Mg Tablet PO 400 mg DAILY BETTY Administration Multivitamins/Vitamin C 1 tab 03/24/21 09:00 03/24/21 09:20 Multivitamin Tablet PO 1 tab DAILY BETTY Administration Non-Formulary Medication 10 mg 03/24/21 09:00 Macitentan [Opsumit] PO DAILY BETTY Non-Formulary Medication 1,600 mcg 03/23/21 21:00 Selexipag [Uptravi] PO BID BETTY Ondansetron HCl 4 mg 03/23/21 19:44 Ondansetron Hcl 4 Mg/2 Ml Vial IVPUSH Q8H PRN Nausea and Vomiting Pharmacy Consult 1 each 03/23/21 17:08 Consult Rx Perform Med Rec MISCELLANE ONCE PRN Consult order Rifaximin 550 mg 03/23/21 21:00 03/24/21 09:19 Rifaximin 550 Mg Tablet PO 550 mg BID BETTY Administration Sertraline HCl 50 mg 03/24/21 09:00 03/24/21 09:20 Sertraline Hcl 50 Mg Tablet PO 50 mg DAILY BETTY Administration Sertraline HCl 100 mg 03/24/21 09:00 03/24/21 09:20 Sertraline Hcl 100 Mg Tablet PO 100 mg DAILY BETTY Administration Sildenafil Citrate 20 mg 03/23/21 21:00 03/24/21 09:21 Sildenafil Citrate 20 Mg Tablet PO 20 mg TID BETTY Administration Sodium Chloride 3 ml 03/24/21 00:00 03/24/21 09:01 0.9 % Sodium Chloride Flush 3 Ml Syringe IVFLUSH Not Given QSHIFT BETTY Spironolactone 25 mg 03/24/21 09:00 03/24/21 09:20 Spironolactone 25 Mg Tablet PO 25 mg DAILY BETTY Administration Protocol Vitamin D 50 mcg 03/24/21 09:00 03/24/21 09:20 Cholecalciferol (Vitamin D3) 25 Mcg Tablet PO 50 mcg DAILY BETTY Administration Labs CBC & Chem 7: 03/24/21 09:23 03/24/21 09:23 Assessment and Plan (1) Cirrhosis of liver: Status: Acute (2) Portal hypertension with esophageal varices: Status: Acute (3) Pulmonary hypertension: Status: Acute Assessment and Plan: This is a 35 yo M with a PMH of End Stage Liver disease (cause unknown) who presents to the hospital with complaints of feeling unwell over the last several days. His work-up in the ED showed that his baseline LFTs were markedly increased and so he was admitted. 1. End Stage Liver disease LFTs acutely worsened Hepatitis panel negative, but respiratory panel showing +Rhino/Enterovirus Bilirubin increasing Ultrasound negative for biliary obstruction, ? need for MRCP Gi on board -- will follow their recommendations start clear liquid diet continue his baseline meds 2. HypoMg on oral replacement continue to monitor 3. Pulm Htn contine sildanefil 4. Mood continue home meds 5. DM sliding scale 6. Thrombocytopenia chronic Full Code DVT pptx,
[2021-03-24 11:14] LABS: Glucose, Whole Blood 141 mg/dL (60-115)
[2021-03-24 11:25] LABS: SLIDE REVIEW VERIFIED
--- NOTE | 2021-03-24 12:23 | MHC.CM.PN ---
met with pt darrell salinas cm intervention is not indicated pt declined hcp and he has own transportaion home
[2021-03-24 16:09] LABS: Glucose, Whole Blood 142 mg/dL (60-115)
--- NOTE | 2021-03-24 19:17 | PC.NURSE ---
Pt removed off monitor worker for MRCP per protocol.
[2021-03-24 20:13] LABS: Glucose, Whole Blood 168 mg/dL (60-115)
[2021-03-24] MEDS: Insulin Lispro 100 UNIT/ML 3 ML VIAL SUBCUT (20:38)
[2021-03-24] MEDS: 0.9 % Sodium Chloride Flush 3 ML SYRINGE IVFLUSH (20:42)
[2021-03-24] MEDS: Benzonatate 100 MG CAPSULE PO (20:52)
[2021-03-25] MEDS: 0.9 % Sodium Chloride 1,000 ML 100 ML IVCONT (01:44)
[2021-03-25 04:00] VITALS: BP 117/60; PULSE 69; RESP 18; TEMP 36.1; O2SAT 95
[2021-03-25 07:13] LABS: Glucose, Whole Blood 130 mg/dL (60-115)
[2021-03-25 07:43] VITALS: BP 109/59; PULSE 68; RESP 19; TEMP 36.3; O2SAT 94
[2021-03-25] MEDS: Magnesium Oxide 400 MG TABLET PO (08:59)
[2021-03-25] MEDS: Sertraline HCL 100 MG TABLET PO (08:59)
[2021-03-25] MEDS: Sertraline HCL 50 MG TABLET PO (08:59)
[2021-03-25] MEDS: rifAXIMin 550 MG TABLET PO (09:00)
[2021-03-25] MEDS: Sildenafil Citrate 20 MG TABLET PO (09:00)
[2021-03-25] MEDS: Cholecalciferol (Vitamin D3) 25 MCG TABLET 50 MCG PO (09:00)
[2021-03-25] MEDS: Multivitamin TABLET 1 TAB PO (09:00)
[2021-03-25] MEDS: Gabapentin 300 MG CAPSULE PO (09:00)
[2021-03-25 10:19] LABS: Alanine Aminotransferase 96 U/L (0-40); Albumin Level 3.2 g/dL (3.5-5.0); Alkaline Phosphatase 1092 U/L (39-117); Aspartate Amino Transferase 132 U/L (5-37); Bilirubin Direct 5.9 mg/dL (0.0-0.5); Bilirubin Total 7.7 mg/dL (0.0-1.0); Total Protein 5.8 g/dL (6.5-8.0)
--- NOTE | 2021-03-25 11:02 | P.DS_ITS ---
DS: Providers Provider Date of Service: 03/25/21 <NATALY Stewart - Last Filed: 03/25/21 11:12> 03/25/21 <Rolando Eubanks MD - Last Filed: 03/25/21 11:39> Date of admission: 03/23/21 19:48 <NATALY Stewart - Last Filed: 03/25/21 11:12> Primary care physician: Raymundo Costa MD <NATALY Stewart - Last Filed: 03/25/21 11:12> Consults: 03/23/21 19:44 Consult to Gastroenterology Routine Consulting Provider: Skyler Delgadillo Reason for consultation: elevated liver enzymes <NATALY Stewart - Last Filed: 03/25/21 11:12> DS: Diagnosis Discharge Diagnosis (1) Cirrhosis of liver: Status: Acute <NATALY Stewart - Last Filed: 03/25/21 11:12> (2) Portal hypertension with esophageal varices: Status: Acute <NATALY Stewart - Last Filed: 03/25/21 11:12> (3) Pulmonary hypertension: Status: Acute <NATALY Stewart - Last Filed: 03/25/21 11:12> (4) Enterovirus infection: Status: Acute <NATALY Stewart - Last Filed: 03/25/21 11:12> DS: Medications Discharge Medications Home Medications: Home Medications Medication Instructions Recorded Confirmed macitentan 10 mg tablet 10 mg PO DAILY 10/12/20 03/23/21 magnesium oxide 400 mg PO DAILY 10/12/20 03/23/21 selexipag 1,600 mcg tablet 1,600 mcg PO BID 10/12/20 03/23/21 sertraline 100 mg tablet 100 mg PO DAILY 10/12/20 03/23/21 sertraline 50 mg tablet 50 mg PO DAILY 10/12/20 03/23/21 sildenafil (pulm.hypertension) 20 20 mg PO TID 10/12/20 03/23/21 mg tablet gabapentin 300 mg capsule 300 mg PO BID 03/08/21 03/23/21 furosemide 40 mg PO DAILY 03/23/21 03/23/21 multivitamin 1 tab PO DAILY 03/23/21 03/23/21 Previous Rx's Medication Instructions Recorded cholecalciferol (vitamin D3) 50 50 mcg PO DAILY #90 cap 10/27/20 mcg (2,000 unit) capsule spironolactone 25 mg tablet 25 mg PO DAILY #90 tab 11/19/20 rifaximin 550 mg tablet 550 mg PO BID #60 tab 11/29/20 hydrocodone 10 mg-acetaminophen 1 tab PO Q8H PRN 30 Days #90 tab 03/05/21 325 mg tablet MDD 3 <NATALY Stewart - Last Filed: 03/25/21 11:12> DS: Summary Hospital Course Hospital Course: 35 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 Patient [place] [facility] [place] with flu-like symptoms. Labs revealed an increase in LFTs from baseline. Right upper quadrant ultrasound showed chronic findings but no acute findings, no gallstones. Patient was evaluated by GI who recommended hepatitis A,B,C serology and EBV. US showed gallstones within the gallbladder but no evidence of wall thickening or pericholecystic fluid. There are no focal hepatic lesions and no intrahepatic biliary duct dilatation. He underwent MRCP which showed cirrhotic liver with changes of portal hypertension with varices and marked splenomegaly; a normal appearance of the common bile duct with no filling defect. His hepatitis serologies were nonreactive. EBV was checked and is pending at discharge. Respiratory pathogen panel Was checked and was positive for rhino/enterovirus. Although above his baseline, liver function remained stable and began to trend down somewhat on the day of discharge. The patient should follow-up with his supervisor contingents Dr. Grimes. He should have repeat labs in 1 week. Attending Attestation: Patient seen and examined independently and I was present during urbina portion of E/M service. Agree with Jacinto Breaux NP's history, physical, assessment, and plan. <NATALY Stewart - Last Filed: 03/25/21 11:12> Time Spent with Patient Time attestation: Total time spent providing and/or coordinating discharge services: <NATALY Stewart Last Filed: 03/25/21 11:12> Discharge coordination time: Greater than 30 minutes <NATALY Stewart - Last Filed: 03/25/21 11:12> Quality: Stroke Does the patient have a stroke diagnosis?: No <NATALY Stewart - Last Filed: 03/25/21 11:12> Physical Exam Vital Signs: Vital Signs: Last Vital Signs Temp 97.3 F 03/25/21 07:43 Pulse 68 03/25/21 07:43 Resp 19 03/25/21 07:43 BP 109/59 L 03/25/21 07:43 Pulse Ox 94 03/25/21 07:43 Body Mass Index 25.0 <NATALY Stewart - Last Filed: 03/25/21 11:12> Const: Other: General - no acute distress, appears comfortable Cardiovascular - regular rate and rhythm, S1-S2 Lungs - normal respiratory effort, clear to auscultation bilaterally, no wheezing Abdomen - soft, nontender, no rebound or guarding Extremities - no edema bilaterally Neuro - awake and alert, no focal deficits Skin - Juandice <NATALY Stewart - Last Filed: 03/25/21 11:12> DS: Data Data Completed and Pending Labs on day of discharge: Laboratory Results - last 24 hr 03/24/21 03/24/21 03/24/21 09:23 09:23 11:08 Smear Tech's Comments VERIFIED Sodium Cancelled Potassium Cancelled Chloride Cancelled Carbon Dioxide Cancelled Anion Gap Cancelled BUN Cancelled Creatinine Cancelled Estim Creat Clear Calc Cancelled Estimated GFR Cancelled POC Glucose 141 H Random Glucose Cancelled Calcium Cancelled Magnesium Cancelled Total Bilirubin Direct Bilirubin AST ALT Alkaline Phosphatase Total Protein Albumin 03/24/21 03/24/21 03/25/21 16:01 20:07 07:08 Smear Tech's Comments Sodium Potassium Chloride Carbon Dioxide Anion Gap BUN Creatinine Estim Creat Clear Calc Estimated GFR POC Glucose 142 H 168 H 130 H Random Glucose Calcium Magnesium Total Bilirubin Direct Bilirubin AST ALT Alkaline Phosphatase Total Protein Albumin 03/25/21 09:19 Smear Tech's Comments Sodium Potassium Chloride Carbon Dioxide Anion Gap BUN Creatinine Estim Creat Clear Calc Estimated GFR POC Glucose Random Glucose Calcium Magnesium Total Bilirubin 7.7 H Direct Bilirubin 5.9 H AST 132 H ALT 96 H Alkaline Phosphatase 1092 H Total Protein 5.8 L Albumin 3.2 L Preliminary micro results at discharge 03/23/21 16:18 Blood Culture - Preliminary Blood - Venous No growth after 24 hours. 03/23/21 15:38 Blood Culture - Preliminary Blood - Venous No growth after 24 hours. <NATALY Stewart - Last Filed: 03/25/21 11:12> Discharge Plan Discharge Patient Disposition: Home, Self-Care <NATALY Stewart - Last Filed: 03/25/21 11:12> Discharge Diagnosis: Rhino/Enterovirus Transaminitis Cryptogenic Liver cirrhosis <NATALY Stewart - Last Filed: 03/25/21 11:12> Rhino/Enterovirus Transaminitis Cryptogenic Liver cirrhosis <Rolando Eubanks MD - Last Filed: 03/25/21 11:39> Referrals: Raymundo Costa MD [Primary Care Provider] - 1 Week Adrianna Grimes MD [Physician] - 1 Week <NATALY Stewart - Last Filed: 03/25/21 11:12> Discharge Medications: Continued cholecalciferol (vitamin D3) 50 mcg (2,000 unit) capsule 50 mcg PO DAILY Qty: 90 RF: 1 spironolactone 25 mg tablet 25 mg PO DAILY Qty: 90 RF: 1 rifaximin [Xifaxan] 550 mg tablet 550 mg PO BID Qty: 60 RF: 4 hydrocodone-acetaminophen 10-325 mg tablet 1 tab PO Q8H MDD 3 PRN (Reason: pain) 30 Days Qty: 90 RF: 0 furosemide 40 mg tablet 40 mg PO DAILY RF: 0 multivitamin Tablet 1 tab PO DAILY RF: 0 gabapentin 300 mg capsule 300 mg PO BID RF: 0 sildenafil (pulm.hypertension) 20 mg tablet 20 mg PO TID RF: 0 Opsumit 10 mg tablet 10 mg PO DAILY RF: 0 Uptravi 1,600 mcg tablet 1,600 mcg PO BID RF: 0 sertraline 100 mg tablet 100 mg PO DAILY RF: 0 sertraline 50 mg tablet 50 mg PO DAILY RF: 0 magnesium oxide 400 mg magnesium tablet 400 mg PO DAILY RF: 0 <NATALY Stewart - Last Filed: 03/25/21 11:12> Discharge Orders: Discharge Order (Routine); Ordered 03/25/21 Ordered By: Marilu Burr <NATALY Stewart - Last Filed: 03/25/21 11:12> Activity on Discharge: As tolerated <NATALY Stewart - Last Filed: 03/25/21 11:12> As tolerated <Rolando Eubanks MD - Last Filed: 03/25/21 11:39> Stand Alone Forms: Patient Portal Discharge page <NATALY Stewart - Last Filed: 03/25/21 11:12> Other Ambulatory Orders: Liver Panel (Routine) Timeframe: [id number] Facility: [facility] - Location: Laboratory Ordered By: Marilu Burr <NATALY Stewart - Last Filed: 03/25/21 11:12> Care Plan Goals: see below <NATALY Stewart - Last Filed: 03/25/21 11:12> Health Concerns: Elevated liver function tests Rhino/enterovirus Liver cirrhosis <NATALY Stewart - Last Filed: 03/25/21 11:12> Plan of Treatment: No obstruction was found to cause elevated in liver enzymes. Repeat liver function tests in 1 week Please call to schedule follow up appointment with Dr. Grimes Rhino/eneterovirus, self limiting <NATALY Stewart - Last Filed: 03/25/21 11:12> Assessment: see discharge <NATALY Stewart - Last Filed: 03/25/21 11:12>
[2021-03-25 11:13] LABS: Glucose, Whole Blood 168 mg/dL (60-115)
--- NOTE | 2021-03-25 11:26 | MHC.CM.PN ---
Patient has been medically cleared for dc to home today, no services. DC IMM addressed with Patient today, providing him with the original and placing a copy on the chart.Patient is aware of and in agreement with the dc plan.
[2021-03-25 11:27] VITALS: BP 116/62; PULSE 64; RESP 18; TEMP 36.4; O2SAT 95
[2021-03-25 15:08] VITALS: BP 117/58; PULSE 83; RESP 18; TEMP 36.9; O2SAT 94
[2021-03-28 13:36] LABS: EBV DNA PCR Not Detected (Not Detected); EBV Source Whole Blood
== END 2021-03-25 15:00 | disposition home or self-care (01) | DRG 434 ==
LOC: HO.ED 18:09 → HO.EDOVER 19:54 → HO.IMC 20:23
PROVIDERS: Nurse Practitioner Acute Care; Nurse Practitioner Family; Physician Assistant Medical; Admitting Provider Hospitalist; Emergency Provider Emergency Medicine; PCP Internal Medicine; Visit Provider Family Medicine
DX: K74.60 Unspecified cirrhosis of liver (principal); F17.210 Nicotine dependence, cigarettes, uncomplicated; Z71.6 Tobacco abuse counseling; D69.6 Thrombocytopenia, unspecified; E11.9 Type 2 diabetes mellitus without complications; I27.20 Pulmonary hypertension, unspecified; E83.42 Hypomagnesemia; K72.90 Hepatic failure, unspecified without coma; Z20.822 Contact with and (suspected) exposure to COVID-19; Z79.899 Other long term (current) drug therapy
CPT/HCPCS: 36415; 71045; 74181; 76705; 80048; 80076; 80143; 80179; 81003; 82140; 82947; 83605; 83735; 84484; 85025; 85610; 86704; 86706; 86709; 86803; 87040; 87340; 87633; 87635; 87798; 93005; 96365; 96366; 99285; J3475

== ENCOUNTER 2021-03-29 15:24 | Outpatient (REF) | payer MEDICAID, SELFPAY ==
[2021-03-29 16:03] LABS: Ammonia 49 umol/L (13-55)
[2021-03-29 16:37] LABS: Basophils Percent Auto 0.3 % (0-2); Imm Gran Abs Auto 0.02 X10*3/uL (0.00-0.03); Imm Gran Pct Auto 0.7 % (0.0-0.4); MANUAL DIFF FLAG SCAN; Monocytes Absolute Auto 0.2 X10*3/uL (0.1-1.2); Monocytes Percent Auto 6.7 % (2-11); PLT CLUMP 1; SCAN SMEAR FLAG 1
[2021-03-29 16:39] LABS: Eosinophils Absolute Auto 0.1 X10*3/uL (0.0-0.4); Eosinophils Percent Auto 1.7 % (0-4); Hematocrit 42.5 % (42-52); Hemoglobin 14.1 g/dl (14.0-18.0); Lymphocytes Absolute Auto 0.3 X10*3/uL (1.2-4.9); Lymphocytes Percent Auto 11.4 % (20-40); Mean Corpuscular HGB Conc 33.2 g/dl (31.0-36.0); Mean Corpuscular Hemoglobin 31.1 pg (27.0-33.0); Mean Corpuscular Volume 93.6 fL (80-98); Mean Platelet Volume 12.4 fL (9.4-12.4); Neutrophils Absolute Auto 2.4 X10*3/uL (2.0-8.3); Neutrophils Percent Auto 79.2 % (45-73); Red Blood Count 4.54 X10*6/uL (4.60-5.80); Red Cell Distribution Width 14.8 % (11.0-16.0)
[2021-03-29 16:47] LABS: INTERNATIONAL NORM RATIO 1.2 (0.9-1.1); Prothrombin Time 14.3 SEC (10.8-13.0)
[2021-03-29 16:57] LABS: Platelet Count 60 X10*3/uL (160-400)
[2021-03-29 16:58] LABS: SLIDE REVIEW VERIFIED
[2021-03-29 17:00] LABS: Alanine Aminotransferase 96 U/L (0-40); Albumin Level 3.8 g/dL (3.5-5.0); Alkaline Phosphatase 1256 U/L (39-117); Anion Gap 12 (12-20); Aspartate Amino Transferase 82 U/L (5-37); Bilirubin Direct 4.6 mg/dL (0.0-0.5); Bilirubin Total 6.2 mg/dL (0.0-1.0); Blood Urea Nitrogen 9 mg/dL (9-16); C Reactive Protein 3.09 mg/dL (< or = 0.50); Calcium 8.8 mg/dL (8.4-10.2); Carbon Dioxide 23 mmol/L (22-29); Chloride 110 mmol/L (96-108); Estimated Glomerular Filt Rate > 60; Gamma Glutamyl Transpeptidase 901 U/L (11-51); Glucose Random 165 mg/dL (60-115); Magnesium 1.7 mg/dL (1.6-2.6); Potassium 3.6 mmol/L (3.3-5.1); Sodium 141 mmol/L (135-145)
[2021-03-29 17:15] LABS: TSH reflex Free T4 0.61 uIU/mL (0.32-4.0); Vitamin D 25-OH Total 22.4 ng/mL (>30)
[2021-03-30 13:38] LABS: Triiodothyronine T3 Free 2.5 pg/mL (2.3-4.2)
== END 2021-03-29 15:25 | disposition home or self-care (01) ==
LOC: HO.LAB 15:24
PROVIDERS: Absent Provider Physician Assistant Medical; PCP Internal Medicine; Visit Provider Internal Medicine Gastroenterology
DX: K74.60 Unspecified cirrhosis of liver (principal); R74.01 Elevation of levels of liver transaminase levels; M13.0 Polyarthritis, unspecified; R00.2 Palpitations; I85.00 Esophageal varices without bleeding; K76.6 Portal hypertension; R79.89 Other specified abnormal findings of blood chemistry; K72.90 Hepatic failure, unspecified without coma
CPT/HCPCS: 36415; 80053; 80076; 82140; 82248; 82306; 82977; 83735; 84443; 84481; 85025; 85610; 86140

== ENCOUNTER → 2021-04-15 08:52 | Outpatient (BNVA) | payer MEDICAID, SELFPAY | PROVIDERS: PCP Internal Medicine; Visit Provider Internal Medicine Gastroenterology ==

== ENCOUNTER 2021-04-23 15:15 | Outpatient (REF) | payer MEDICAID, SELFPAY ==
[2021-04-23 16:33] LABS: INTERNATIONAL NORM RATIO 1.2 (0.9-1.1); Prothrombin Time 14.1 SEC (10.8-13.0)
[2021-04-23 16:37] LABS: Hematocrit 39.8 % (42-52); Hemoglobin 13.3 g/dl (14.0-18.0); Mean Corpuscular HGB Conc 33.4 g/dl (31.0-36.0); Mean Corpuscular Hemoglobin 31.9 pg (27.0-33.0); Mean Corpuscular Volume 95.4 fL (80-98); Mean Platelet Volume 11.9 fL (9.4-12.4); Red Blood Count 4.17 X10*6/uL (4.60-5.80); Red Cell Distribution Width 15.4 % (11.0-16.0)
[2021-04-23 16:38] LABS: Platelet Count 59 X10*3/uL (160-400); White Blood Count 2.3 X10*3/uL (4.8-10.8)
[2021-04-23 17:05] LABS: Anion Gap 11 (12-20); Blood Urea Nitrogen 11 mg/dL (9-16); Calcium 8.6 mg/dL (8.4-10.2); Carbon Dioxide 29 mmol/L (22-29); Chloride 103 mmol/L (96-108); Estimated Glomerular Filt Rate > 60; Glucose Random 164 mg/dL (60-115); Potassium 4.1 mmol/L (3.3-5.1); Sodium 139 mmol/L (135-145)
[2021-04-23 17:28] LABS: Alanine Aminotransferase 61 U/L (0-40); Albumin Level 3.5 g/dL (3.5-5.0); Alkaline Phosphatase 1150 U/L (39-117); Aspartate Amino Transferase 65 U/L (5-37); Bilirubin Direct 4.5 mg/dL (0.0-0.5); Bilirubin Total 6.6 mg/dL (0.0-1.0); Gamma Glutamyl Transpeptidase 764 U/L (11-51); Total Protein 6.6 g/dL (6.5-8.0)
[2021-04-23 17:49] LABS: Folate 9.9 ng/mL (> or = 4.0); Vitamin B12 > 2000 pg/mL (200-900)
[2021-04-24 13:46] LABS: NT-proBNP 303 pg/mL
[2021-04-27 01:57] LABS: Zinc 53 mcg/dL (60-130)
== END 2021-04-23 15:16 | disposition home or self-care (01) ==
LOC: HO.LAB 15:15
PROVIDERS: Absent Provider Internal Medicine Gastroenterology; PCP Internal Medicine; Referring Provider Internal Medicine Gastroenterology; Visit Provider Internal Medicine Pulmonary Disease
DX: K74.60 Unspecified cirrhosis of liver (principal); I27.20 Pulmonary hypertension, unspecified; R06.02 Shortness of breath
CPT/HCPCS: 36415; 80048; 80076; 82607; 82746; 82977; 83880; 84630; 85027; 85610

== ENCOUNTER 2021-05-24 09:33 | Day surgery (SDC) | payer MEDICAID, SELFPAY ==
--- NOTE | 2021-05-21 08:45 | P.CONAN_ITS ---
HPI - Anesthesia Eval Consult details Narrative: 35yo M for Upper Endoscopy [place]20[place] [facility] [place] d/t cryptogenic cirrhosis complicated by portal hypertension, splenomegaly, thrombocytopenia, esophageal varices and hepatic encephalopathy. 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 Mother Diabetes Diverticulitis Maternal Grandmother Diabetes Surgical History Surgical History History of esophagogastroduodenoscopy (EGD) History of liver biopsy Hx of cardiac cath Social History Social History Household Members: Family Household Members Other:: Lives @ his uncle, sone comes daily for remote schooling and weekends. Housing: House Do you presently have visiting nurse or other home services: No Alcohol intake: never Patient Tobacco Use Status: Current someday Tobacco user Tobacco use type: Cigarette Smoked in Last 30 Days: Yes Use of substances other than those prescribed or required for medical reasons: No Are you DNR?: No Advance Directives: Yes Advance Directives Information Provided: Yes Advance Directives on File: No Advance Directives Date on File: 03/31/21 Recently lost weight without trying: No Nutrition Risks: No Nutritional Risk service: No Current occupational status: disabled Meds Allergies Allergy/AdvReac Type Severity Reaction Status Date / Time No Known Allergies Allergy Verified 05/19/21 09:37 Home Medications Medication Instructions Recorded Confirmed Last Taken Type macitentan 10 mg tablet 10 mg PO DAILY 10/12/20 04/15/21 03/23/21 History magnesium oxide 400 mg PO DAILY 10/12/20 04/15/21 03/23/21 History selexipag 1,600 mcg tablet 1,600 mcg PO BID 10/12/20 04/15/21 03/23/21 History sertraline 100 mg tablet 100 mg PO DAILY 10/12/20 04/15/21 03/23/21 History sertraline 50 mg tablet 50 mg PO DAILY 10/12/20 04/15/21 03/23/21 History sildenafil (pulm.hypertension) 20 20 mg PO TID 10/12/20 04/15/21 03/23/21 13:00 History mg tablet gabapentin 300 mg capsule 300 mg PO BID 03/08/21 04/15/21 03/23/21 History furosemide 40 mg PO DAILY 03/23/21 04/15/21 03/23/21 History multivitamin 1 tab PO DAILY 03/23/21 04/15/21 03/23/21 History Exam Exam Date and Time: May 21, 2021 0845 Pertinent Lab Results Pertinent Lab Results: Laboratory Tests 04/23/21 04/23/21 04/23/21 15:27 15:27 15:27 WBC 2.3 L Hgb 13.3 L Hct 39.8 L Plt Count 59 L PT 14.1 H INR 1.2 H Sodium Potassium Chloride Carbon Dioxide BUN Creatinine Calcium Total Bilirubin 6.6 H Direct Bilirubin 4.5 H GGT 764 H AST 65 H ALT 61 H Alkaline Phosphatase 1150 H NT-Pro-B Natriuret Pep Total Protein 6.6 Albumin 3.5 04/23/21 04/23/21 15:27 15:27 WBC Hgb Hct Plt Count PT INR Sodium 139 Potassium 4.1 Chloride 103 Carbon Dioxide 29 BUN 11 Creatinine 0.72 Calcium 8.6 Total Bilirubin Direct Bilirubin GGT AST ALT Alkaline Phosphatase NT-Pro-B Natriuret Pep 303 H Total Protein Albumin Narrative Narrative: EKG 03/2021 Vent. Rate : 065 BPM Atrial Rate : 065 BPM P-R Int : 166 ms QRS Dur : 106 ms QT Int : 460 ms P-R-T Axes : 050 091 022 degrees QTc Int : 478 ms Normal sinus rhythm Possible Left atrial enlargement Right ventricular hypertrophy with repolarization abnormality Nonspecific T wave abnormality Prolonged QT Abnormal ECG When compared with ECG of 20-OCT-2020 15:13, T wave inversion now evident in Anterior leads Assessment and Plan Assessment Anesthesia Assessment: Chart Reviewed
[2021-05-24 09:47] VITALS: BMI 25.0
[2021-05-24 09:52] VITALS: BP 122/68; PULSE 67; RESP 16; TEMP 37; O2SAT 98
[2021-05-24] MEDS: Lactated Ringers 1,000 ML 50 ML IVCONT (10:00)
[2021-05-24 10:11] LABS: Glucose, Whole Blood 157 mg/dL (60-115)
--- NOTE | 2021-05-24 10:57 | MHC.SHP ---
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, managed as type 2 Hepatic encephalopathy History of major depression Low vitamin D level Portal hypertension with esophageal varices Pulmonary hypertension Pulmonary hy) History of Previous Operations: Relevant previous surgery/procedure and date(s) (History of esophagogastroduodenoscopy (EGD) History of liver biopsy Hx of cardiac cath) Allergies: Allergies Allergy/AdvReac Type Severity Reaction Status Date / Time No Known Allergies Allergy Verified 05/19/21 09:37 Review of Systems Sugical H&P ROS: Negative: Constitution, Cardiovascular, Respiratory and Gastrointestinal Exam Surgical H&P Exam: Normal: Heart, Normal: Lungs and Normal: Extremities and Significant Findings: Abdomen (distended due to ascites) Plan Diagnosis/Plan: Unchanged I have reviewed the history and physical and performed a pertinent physical examination on my patient. No changes have occurred unless specified.
--- NOTE | 2021-05-24 11:16 | HO.ANESPROP2 ---
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 Mother Diabetes Diverticulitis Maternal Grandmother Diabetes Surgical History Surgical History History of esophagogastroduodenoscopy (EGD) History of liver biopsy Hx of cardiac cath Social History Social History Household Members: Family Household Members Other:: Lives @ his uncle, sone comes daily for remote schooling and weekends. Housing: House Do you presently have visiting nurse or other home services: No Alcohol intake: never Patient Tobacco Use Status: Current someday Tobacco user Tobacco use type: Cigarette Smoked in Last 30 Days: Yes Use of substances other than those prescribed or required for medical reasons: No Are you DNR?: No Advance Directives: Yes Advance Directives Information Provided: Yes Advance Directives on File: No Advance Directives Date on File: 03/31/21 Recently lost weight without trying: No Nutrition Risks: No Nutritional Risk service: No Current occupational status: disabled Meds Allergies Allergy/AdvReac Type Severity Reaction Status Date / Time No Known Allergies Allergy Verified 05/19/21 09:37 Active Medications: Current Medications Generic Name Dose Route Start Last Admin Trade Name Freq PRN Reason Stop Dose Admin Lactated Ringer's 1,000 mls @ 50 mls/hr 05/24/21 09:45 05/24/21 10:00 Lr IVCONT 50 mls/hr .Q20H BETTY Administration Home Medications Medication Instructions Recorded Confirmed Last Taken Type macitentan 10 mg tablet 10 mg PO DAILY 10/12/20 04/15/21 03/23/21 History magnesium oxide 400 mg PO DAILY 10/12/20 04/15/21 03/23/21 History selexipag 1,600 mcg tablet 1,600 mcg PO BID 10/12/20 04/15/21 03/23/21 History sertraline 100 mg tablet 100 mg PO DAILY 10/12/20 04/15/21 03/23/21 History sertraline 50 mg tablet 50 mg PO DAILY 10/12/20 04/15/21 03/23/21 History sildenafil (pulm.hypertension) 20 20 mg PO TID 10/12/20 04/15/21 03/23/21 13:00 History mg tablet gabapentin 300 mg capsule 300 mg PO BID 03/08/21 04/15/21 03/23/21 History furosemide 40 mg PO DAILY 03/23/21 04/15/21 03/23/21 History multivitamin 1 tab PO DAILY 03/23/21 04/15/21 03/23/21 History Exam Exam Date and Time: May 24, 2021 1116 Height,Weight and Vital Signs: Height 6 ft 1 in Weight 86.183 kg Last Vital Signs Temp 98.6 F 05/24/21 09:52 Pulse 67 05/24/21 09:52 Resp 16 05/24/21 09:52 BP 122/68 05/24/21 09:52 Pulse Ox 98 05/24/21 09:52 Pertinent Lab Results Pertinent Lab Results: Laboratory Tests 05/24/21 10:08 POC Glucose 157 H Airway Mallampati Class: II TM Dist: >3cm Neck ROM: Full Heart: RRR Lungs: CTA
[2021-05-24 11:35] VITALS: BP 100/55; PULSE 69; RESP 16; TEMP 36.2; O2SAT 95
--- NOTE | 2021-05-24 11:36 | PM.OP ---
Brief Operative Note Date of Service: 05/24/21 Pre-op diagnosis: Cirrhosis, FU of gastric and esophageal varices Post-op diagnosis: other (Esophageal and gastric varices, portal gastropathy) Procedure: FLEXIBLE TRANSORAL UPPER GASTROINTESTINAL ENDOSCOPY WITH BIOPSIES Consent: Indications for the procedure and potential complications of bleeding, perforation, reaction to medications and missed diagnosis were discussed with the patient and informed consent was obtained. Instrument: Olympus GIF H 190 mid size upper endoscope Monitoring: Vital signs and clinical assessment, continuous EKG monitoring, Pulse oximetry, Carbon Dioxide monitoring and blood pressure monitoring were done throughout the procedure. Procedure: The patient was placed in the left lateral decubitis position and pre-procedure medications were administered and a bite block was placed. The endoscope was inserted into the mouth and advanced under direct vision to the third part of duodenum. A careful inspection was made as the upper endoscope was withdrawn including a retroflexed examination of the proximal stomach; Findings and interventions are described below. Findings: Larynx: Normal Esophagus: GE junction at 40 cms. Grade 1-2 esophageal varices from 30 to 40 cms without red rigoberto signs or high risk stigmata for bleeding Stomach: Moderate erosive portal gastropathy with small amount of heme in the stomach. Biopsies were obtained from the antrum to check for H Pylori. Prominent folds versus gastric vairices in the fundus without high risk stigmata for bleeding and Grade 2 flap valve on retroflexed examination of the cardia. Duodenum: Multiple 8-10 mm benign appearing nodules in the apex of the bulb - biopsied. Normal descending duodenum Intervention: Biopsies as noted above Impression and Post Procedure Diagnosis: Endoscopy Findings: ESOPHAGUS: Grade 1-2 esophageal varices from 30 to 40 cms without red rigoberto signs or high risk stigmata for bleeding STOMACH: Moderate erosive portal gastropathy with small amount of heme in the stomach. Biopsies were obtained from the antrum to check for H Pylori. Prominent folds versus gastric vairices in the fundus without high risk stigmata for bleeding and Grade 2 flap valve on retroflexed examination of the cardia. DUODENUM: Multiple 8-10 mm benign appearing nodules in the apex of the bulb - biopsied. Normal descending duodenum Plan: Await pathology results Patient has an appointment on 06/28/21 in the GI Clinic with Sukhi Luis. Above findings were reviewed with the patient and a hand out on Esophageal Varices was given in the discharge area Surgeon: Skyler Delgadillo MD Anesthesia: MAC (Dr Garcia) Was an Workers Compensation Defense Attorney used for this Procedure?: Yes Workers Compensation Defense Attorney: Joey Madden Estimated blood loss (mL): 0 Pathology: other (A- DUODENAL NODULE B- GASTRIC ANTRUM BXS R/O H, PYLORI) Condition: stable Disposition: PACU
[2021-05-24 11:50] VITALS: BP 106/55; PULSE 63; RESP 16; TEMP 36.2; O2SAT 98
--- NOTE | 2021-05-24 14:03 | HO.POSTANES ---
Post Anesthesia Evaluation Post Anesthesia Evaluation Vital Signs: Vital Signs Temp Pulse Resp BP Pulse Ox 05/24/21 11:50 97.2 F 63 16 106/55 L 98 05/24/21 11:35 97.2 F 69 16 100/55 L 95 05/24/21 09:52 98.6 F 67 16 122/68 98 Anesthesia: Monitored Mental Status: Awake Pain Control: Satisfactory Nausea/Vomiting: None Hydration: Adequate Anesthesia-Related Issues: No Anes. Related Issues
--- NOTE | 2021-05-24 17:34 | W.PM.OPN ---
Operative Note Operative Note Date of Service: 05/24/21 Narrative: Pre-op diagnosis: Cirrhosis, FU of gastric and esophageal varices Post-op diagnosis: other (Esophageal and gastric varices, portal gastropathy) Procedure: FLEXIBLE TRANSORAL UPPER GASTROINTESTINAL ENDOSCOPY WITH BIOPSIES Consent: Indications for the procedure and potential complications of bleeding, perforation, reaction to medications and missed diagnosis were discussed with the patient and informed consent was obtained. Instrument: Olympus GIF H 190 mid size upper endoscope Monitoring: Vital signs and clinical assessment, continuous EKG monitoring, Pulse oximetry, Carbon Dioxide monitoring and blood pressure monitoring were done throughout the procedure. Procedure: The patient was placed in the left lateral decubitis position and pre-procedure medications were administered and a bite block was placed. The endoscope was inserted into the mouth and advanced under direct vision to the third part of duodenum. A careful inspection was made as the upper endoscope was withdrawn including a retroflexed examination of the proximal stomach; Findings and interventions are described below. Findings: Larynx: Normal Esophagus: GE junction at 40 cms. Grade 1-2 esophageal varices from 30 to 40 cms without red rigoberto signs or high risk stigmata for bleeding Stomach: Moderate erosive portal gastropathy with small amount of heme in the stomach. Biopsies were obtained from the antrum to check for H Pylori. Prominent folds versus gastric vairices in the fundus without high risk stigmata for bleeding and Grade 2 flap valve on retroflexed examination of the cardia. Duodenum: Multiple 8-10 mm benign appearing nodules in the apex of the bulb - biopsied. Normal descending duodenum Intervention: Biopsies as noted above Impression and Post Procedure Diagnosis: Endoscopy Findings: ESOPHAGUS: Grade 1-2 esophageal varices from 30 to 40 cms without red rigoberto signs or high risk stigmata for bleeding STOMACH: Moderate erosive portal gastropathy with small amount of heme in the stomach. Biopsies were obtained from the antrum to check for H Pylori. Prominent folds versus gastric vairices in the fundus without high risk stigmata for bleeding and Grade 2 flap valve on retroflexed examination of the cardia. DUODENUM: Multiple 8-10 mm benign appearing nodules in the apex of the bulb - biopsied. Normal descending duodenum Plan: Await pathology results Patient has an appointment on 07/05/21 in the GI Clinic with Adrianna Grimes M.D. Repeat EGD in 1 year for varices surveillance. Above findings were reviewed with the patient and a hand out on Esophageal Varices was given in the discharge area Surgeon: Skyler Delgadillo MD Anesthesia: MAC (Dr Garcia) Was an Paid Search Marketing Analyst used for this Procedure?: Yes Paid Search Marketing Analyst: Joey Madden Estimated blood loss (mL): 0 Pathology: other (A- DUODENAL NODULE B- GASTRIC ANTRUM BXS R/O H, PYLORI) Condition: stable Disposition: PACU
== END 2021-05-24 12:00 | disposition home or self-care (01) ==
PROVIDERS: PCP Internal Medicine; Visit Provider Internal Medicine Gastroenterology
PROC: 0DJ08ZZ Inspection of Upper Intestinal Tract, Via Natural or Artificial Opening Endoscopic (ICD-10-PCS; CPT 43235; principal; 2021-05-24 10:50)
DX: K74.60 Unspecified cirrhosis of liver (principal); K72.90 Hepatic failure, unspecified without coma; K76.6 Portal hypertension; I85.10 Secondary esophageal varices without bleeding; I86.4 Gastric varices; I50.9 Heart failure, unspecified; E13.9 Other specified diabetes mellitus without complications; E55.9 Vitamin D deficiency, unspecified; R74.01 Elevation of levels of liver transaminase levels; K31.89 Other diseases of stomach and duodenum; F17.210 Nicotine dependence, cigarettes, uncomplicated; Z79.899 Other long term (current) drug therapy
CPT/HCPCS: 43239; 82947; 88305; 88342

== ENCOUNTER 2021-07-30 07:11 | Outpatient (REF) | payer MEDICAID, SELFPAY ==
--- NOTE | ~2021-07-30 | MR_ITS ---
EXAMINATION: MR ABDOMEN WITHOUT CONTRAST CLINICAL INFORMATION: Primary sclerosing cholangitis. Abdominal pain, nausea, vomiting, postprandial symptoms for several weeks. COMPARISON: MRCP 03/24/2021, abdominal ultrasound 03/23/2021 TECHNIQUE: MR abdomen is performed without gadolinium contrast. Imaging is performed in coronal and axial planes additional MRCP sequence also included. FINDINGS: LUNG BASES: The lung bases are clear. LIVER, GALLBLADDER, AND BILIARY TREE: The liver is within normal size. The surface is mildly undulating similar to prior exam. The parenchyma is uniform in signal. There is no focal hepatic parenchymal lesion on this noncontrast exam. There is no intrahepatic or extrahepatic biliary ductal dilatation. The gallbladder is only partially distended. There is a 1.4 cm gallstone in the dependent gallbladder. The gallbladder wall appears circumferentially thickened. PANCREAS: Unremarkable. No pancreatic ductal distention. SPLEEN: Markedly enlarged measuring approximately 28 cm in length and 21 cm in sagittal dimension. The splenic parenchyma areas uniform in signal. There are scattered punctate low signal siderotic nodules, consistent with the portal hypertension. ADRENAL GLANDS: Unremarkable. KIDNEYS AND URETERS: The kidneys are normal in size and shape. No hydronephrosis. No perinephric stranding. GASTROINTESTINAL TRACT: No gross bowel obstruction. There is some trace ascites around the liver and spleen. No focal fluid collection. ABDOMINAL WALL: Coronal T2 sequence suggest anasarca with edema subcutaneous space. LYMPH NODES: No gross lymphadenopathy. VASCULAR: There are prominent varices left upper quadrant splenorenal and right upper quadrant around the anterior liver to the umbilicus. There is a patent umbilical vein. The portal vein is enlarged measuring approximately 2 cm in diameter. The splenic vein and main portal vein are patent. The hepatic veins are ill-defined, similar to prior MR 03/24/2021. OSSEOUS STRUCTURES: Marrow signal normal. Results called and discussed with Dr. Delgadillo at 1604 hours. MR/MR abdomen wo con IMPRESSION: 1. Cirrhosis with portal hypertension, marked splenomegaly, large varices, trace ascites and anasarca. 2. Hepatic veins not well visualized, no significant change from prior MR 03/24/2021. 3. Old gallstone. Circumferential gallbladder wall thickening. Possibility of acute or chronic cholecystitis cannot be excluded. Clinically correlate. No intrahepatic or extrahepatic ductal dilatation.
[2021-07-30 09:02] LABS: INTERNATIONAL NORM RATIO 1.3 (0.9-1.1); Prothrombin Time 15.2 SEC (9.9-13.0); Red Cell Distribution Width 17.9 % (11.0-16.0)
[2021-07-30 09:04] LABS: Basophils Percent Auto 0.6 % (0-2); Eosinophils Absolute Auto 0.1 X10*3/uL (0.0-0.4); Eosinophils Percent Auto 2.4 % (0-4); Hematocrit 38.6 % (42-52); Hemoglobin 13.3 g/dl (14.0-18.0); Imm Gran Abs Auto 0.05 X10*3/uL (0.00-0.03); Lymphocytes Absolute Auto 0.3 X10*3/uL (1.2-4.9); Lymphocytes Percent Auto 5.1 % (20-40); Mean Corpuscular HGB Conc 34.5 g/dl (31.0-36.0); Mean Corpuscular Hemoglobin 32.4 pg (27.0-33.0); Mean Corpuscular Volume 94.1 fL (80-98); Mean Platelet Volume 11.9 fL (9.4-12.4); Monocytes Absolute Auto 0.2 X10*3/uL (0.1-1.2); Monocytes Percent Auto 4.9 % (2-11); Neutrophils Absolute Auto 4.2 X10*3/uL (2.0-8.3); White Blood Count 4.9 X10*3/uL (4.8-10.8)
[2021-07-30 09:08] LABS: MANUAL DIFF FLAG NO; Platelet Count 84 X10*3/uL (160-400)
[2021-07-30 10:16] LABS: Alanine Aminotransferase 60 U/L (0-40); Albumin Level 3.2 g/dL (3.5-5.0); Alkaline Phosphatase 617 U/L (39-117); Anion Gap 14 (12-20); Aspartate Amino Transferase 84 U/L (5-37); Blood Urea Nitrogen 14 mg/dL (9-16); Calcium 8.6 mg/dL (8.4-10.2); Carbon Dioxide 23 mmol/L (22-29); Chloride 105 mmol/L (96-108); Estimated Glomerular Filt Rate > 60; Glucose Random 155 mg/dL (60-115); Potassium 3.1 mmol/L (3.3-5.1); Sodium 139 mmol/L (135-145); Total Protein 6.3 g/dL (6.5-8.0)
[2021-07-30 10:17] LABS: Alanine Aminotransferase 60 U/L (0-40); Albumin Level 3.2 g/dL (3.5-5.0); Alkaline Phosphatase 620 U/L (39-117); Aspartate Amino Transferase 84 U/L (5-37); Total Protein 6.3 g/dL (6.5-8.0)
[2021-07-30 10:44] LABS: Bilirubin Total 46.4 mg/dL (0.0-1.0)
[2021-07-30 11:21] LABS: Bilirubin Direct 31.4 mg/dL (0.0-0.5)
[2021-07-31 14:06] LABS: Carbohydrate Antigen 19-9 6 U/mL (<34)
[2021-08-02 13:51] LABS: Alpha Fetoprotein 2.3 ng/mL (<6.1)
== END 2021-07-30 07:12 | disposition home or self-care (01) ==
LOC: HO.MRI 07:11
PROVIDERS: Internal Medicine Gastroenterology; PCP Internal Medicine; Visit Provider Internal Medicine Gastroenterology
DX: K83.01 Primary sclerosing cholangitis (principal); K74.60 Unspecified cirrhosis of liver
CPT/HCPCS: 36415; 74181; 80053; 80076; 82105; 82248; 82378; 83690; 85025; 85610; 85730; 86301; 87040; 87635; 93975; 96361; 96374; 99285; J2270

== ENCOUNTER 2021-07-30 13:16 | Emergency (ER) | payer MEDICAID, SELFPAY ==
--- NOTE | ~2021-07-30 | US_ITS ---
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 Abdominal pain. COMPARISON: Abdomen ultrasound from 03/23/2021. Abdomen MRI from 07/30/2021. TECHNIQUE: Duplex Doppler imaging of the major abdominal vessels was performed (portal, splenic and hepatic veins, IVC and hepatic arteries). FINDINGS: Liver has cirrhotic morphology with nodular contour. No focal hepatic lesion or intrahepatic ductal dilatation. The main and left portal veins have normal waveforms with hepatopedal flow. However, there is suboptimal visualization of Doppler flow within the right portal vein, suspicious for thrombosis (image 18 of 39). There is a recanalized paraumbilical vein. Large spleen measures approximately 27 cm in cranial caudal dimension. No focal splenic lesion. The visualized splenic vein is patent. There are perisplenic varices. The proper hepatic artery has a peak systolic velocity of 205 cm/sec. The right and left hepatic arteries have normal waveforms with peak velocities of 157 and 132 cm/sec, respectively. Normal flow is detected within the right, middle and left hepatic veins. Inferior vena cava is normal. The abdominal aorta is normal in caliber. Small volume of ascitic fluid is present within the abdomen. US/US duplex arterial venous comp IMPRESSION: * Cirrhosis, splenomegaly, small volume ascites and abdominal varices. * No evidence of hepatic venous thrombosis. * The suboptimal visualization of color Doppler flow in the right portal vein is suspicious for right portal vein thrombosis. Otherwise, portal veins are unremarkable.
[2021-07-30 13:19] VITALS: BP 135/63; PULSE 76; RESP 18; TEMP 36.6; O2SAT 96; BMI 25.0
[2021-07-30 14:09] VITALS: BP 118/64; PULSE 72; RESP 18; TEMP 36.8; O2SAT 98
--- NOTE | 2021-07-30 14:24 | ED_ITS ---
[facility] - General Acute Hospital Chief complaint: Recheck/Abnormal Lab/Rx Stated complaint: elevated liver enzymes Time Seen by Provider: 07/30/21 13:37 Source: patient Mode of arrival: ambulatory Limitations: no limitations History of Present Illness HPI narrative: Patient presents to the ED for evaluation sent by band reamer machine operator Dr. Delgadillo for elevated liver enzymes specially T bili with history of fatty liver and cirrhosis. Patient admits to skin being more yellow and eyes being more yellow. 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 Related Data Home Medications Medication Instructions Recorded Confirmed macitentan 10 mg tablet (Opsumit) 10 mg PO DAILY 10/12/20 04/15/21 selexipag 1,600 mcg tablet 1,600 mcg PO BID 10/12/20 04/15/21 (Uptravi) sertraline 100 mg tablet 100 mg PO DAILY 10/12/20 04/15/21 sertraline 50 mg tablet 50 mg PO DAILY 10/12/20 04/15/21 sildenafil (pulm.hypertension) 20 20 mg PO TID 10/12/20 04/15/21 mg tablet gabapentin 300 mg capsule 300 mg PO BID 03/08/21 04/15/21 furosemide 40 mg tablet 40 mg PO DAILY 03/23/21 04/15/21 multivitamin 1 tab PO DAILY 03/23/21 04/15/21 Previous Rx's Medication Instructions Recorded rifaximin 550 mg tablet (Xifaxan) 550 mg PO BID #60 tab 03/29/21 cholecalciferol (vitamin D3) 50 50 mcg PO DAILY #90 cap 05/04/21 mcg (2,000 unit) capsule spironolactone 25 mg tablet 25 mg PO DAILY #90 tab 05/11/21 hydrocodone 10 mg-acetaminophen 1 tab PO Q8H PRN 30 Days #90 tab 07/10/21 325 mg tablet MDD 3 magnesium oxide 400 mg PO DAILY 60 Days #60 tab 07/10/21 Allergies Allergy/AdvReac Type Severity Reaction Status Date / Time No Known Allergies Allergy Verified 05/19/21 09:37 Review of Systems Review of Systems: Yes all other systems are reviewed and are negative Constitutional: Constitutional: Reports as per HPI and Reports no additional constitutional complaints Eyes: Eyes: Reports as per HPI and Reports no additional eye complaints Comments: Icterus ENT: Reports system reviewed and no additional complaints, except as documented and Reports as per HPI Cardiovascular: Cardiovascular: Reports as per HPI and Reports no additional cardiovascular complaints Respiratory: Respiratory: Reports as per HPI and Reports no additional respiratory complaints Gastrointestinal: Gastrointestinal: Reports as per HPI and Reports no additional gastrointestinal complaints Genitourinary: Genitourinary: Reports no additional male genitourinary complaints and Reports as per HPI Musculoskeletal: Musculoskeletal: Reports no additional musculoskeletal complaints and Reports as per HPI Integumentary/Breasts: Skin/Breast: Reports system reviewed and no additional complaints, except as docu and Reports as per HPI Neurologic: Reports system reviewed and no additional complaints, except as documented and Reports as per HPI Psychiatric: Psychiatric: Reports no additional psychiatric complaints and Reports as per HPI [facility] Past Medical History Medical History Abnormal findings on esophagogastroduodenoscopy (EGD) Chronic right-sided congestive heart failure Cirrhosis of liver Diabetes 1.5, 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 Mother Diabetes Diverticulitis Maternal Grandmother Diabetes Social History Social History Household Members: Family Household Members Other:: Lives @ his uncle, sone comes daily for remote schooling and weekends. Housing: House Do you presently have visiting nurse or other home services: No Alcohol intake: never Patient Tobacco Use Status: Current someday Tobacco user Tobacco use type: Cigarette Advance Directives: Yes Advance Directives on File: Yes Advance Directives Date on File: 03/31/21 service: No Current occupational status: disabled Physical Exam Vital Signs: Vital Signs: Last Vital Signs Temp 98.2 F 07/30/21 18:42 Pulse 70 07/30/21 18:42 Resp 16 07/30/21 18:42 BP 120/54 L 07/30/21 18:42 Pulse Ox 98 07/30/21 18:42 Body Mass Index 25.0 Const: General: cooperative, healthy appearing, comfortable, no acute distress, well developed and alert; No awake Orientation/consciousness: patient oriented x3 HENMT: Head: Yes normal to inspection, Yes No palpable skull fracture present, Yes normocephalic, Yes atraumatic and No abrasion Eyes: Other: Icterus Neck: Neck: Yes normal visual inspection, Yes full ROM, Yes no lymphadenopathy, Yes no meningeal signs, Yes trachea midline, Yes supple and No tender Chest: Chest palpation & inspection: normal inspection of the chest and normal palpation of entire chest wall Resp: Effort & Inspection: normal respiratory effort and able to speak in complete sentences Auscultation: clear to auscultation bilaterally Cardio: Jugular venous distension: no JVD Heart sounds: S1 normal heart sound present and S2 normal heart sound present GI: Inspection: Yes normal to inspection and No abdominal wall ecchymosis Palpation (GI): Soft to palpation, not firm, nontender and no guarding : General: No CVA tenderness and Yes no CVA tenderness Back/Spine/Pelvis: Back: no CVA tenderness, No CVA tenderness and No back tenderness Skin: Other: Jaundice General skin exam: no rashes or lesions noted and elasticity normal Neuro: General: patient oriented x3, gait normal, no meningeal signs and CN's II-XI intact bilaterally Cranial nerves: Yes CN's II-XII intact bilaterally Extrem: General: Yes normal to inspection and Yes full ROM Psych: Appearance: grossly normal, well kempt and not disheveled Course Course Course Narrative: Patient have repeat liver enzyme. Radiology was called to expose the reading of abdominal MRI. Reevaluation(s) Reevaluation #1: Patient's abdominal MRI does not show any obstruction. Positive for elevation in T bili. T bili is now 47. Abdominal ultrasound negative for any blood clot and portal vein. Spoke with Dr. Sandra Breen of located within [facility] who evaluated patient in the past and she was informed of patient's history, physical exam, and diagnostic. She recommended patient be transferred to [facility] for evaluation as a transplant candidate. [facility] transfer line was called and they informed us that they were at full capacity and will not be able to take patient and prefer for patient be transferred elsewhere instead of waiting on list for possible availability of bed which may take Federal days. [facility] was called and waiting for feedback from transplant center. Time: 19:25 Reevaluation #2: Patient accepted by [facility] to go to the ER for transplant evaluation. Accepting Physician is Dr. Eason of [facility] ED. Time: 20:10 Reevaluation #3: Called [facility] the ED was called spoke with nurse Dodge at triage informed the ultrasound although negative for hepatic venous thrombosis ordered and negative for main and left portal vein thrombosis it was positive for suspicious right portal vein thrombosis. Nurse Dodge states he will pass along this information to Dr. Eason or any attending physician that would evaluate patient. Ultrasound and abdominal MRI CD will go with patient. Presently patient not in any distress. Patient denies any pain. Vital signs are stable. Time: 20:48 Medical Decision Making MDM Narrative Medical decision making narrative: Liver failure Lab Data Labs: Lab Results 07/30/21 07/30/21 07/30/21 Range/Units 14:55 14:55 14:55 APTT 42.7 H (24.1-38.0) SEC Total Bilirubin 45.7 H (0.0-1.0) mg/dL Direct Bilirubin 31.0 H (0.0-0.5) mg/dL AST 72 H (5-37) U/L ALT 57 H (0-40) U/L Alkaline Phosphatase 611 H (39-117) U/L Total Protein 6.2 L (6.5-8.0) g/dL Albumin 3.1 L (3.5-5.0) g/dL Lipase 15 (8-78) U/L COVID-19 (MICHELE) Negative (Negative) COVID-19 Clin Com See Note Discharge Plan Discharge Clinical Impression: Acute liver failure Patient Disposition: Xfer [facility] Transfer Details: [facility] Prescriptions: No Action rifaximin [Xifaxan] 550 mg tablet 550 mg PO BID Qty: 60 RF: 4 cholecalciferol (vitamin D3) 50 mcg (2,000 unit) capsule 50 mcg PO DAILY Qty: 90 RF: 1 spironolactone 25 mg tablet 25 mg PO DAILY Qty: 90 RF: 2 magnesium oxide 400 mg magnesium tablet 400 mg PO DAILY 60 Days Qty: 60 RF: 3 hydrocodone-acetaminophen 10-325 mg tablet 1 tab PO Q8H MDD 3 PRN (Reason: pain) 30 Days Qty: 90 RF: 0 furosemide 40 mg tablet 40 mg PO DAILY RF: 0 multivitamin Tablet 1 tab PO DAILY RF: 0 gabapentin 300 mg capsule 300 mg PO BID RF: 0 sildenafil (pulm.hypertension) 20 mg tablet 20 mg PO TID RF: 0 Opsumit 10 mg tablet 10 mg PO DAILY RF: 0 Uptravi 1,600 mcg tablet 1,600 mcg PO BID RF: 0 sertraline 100 mg tablet 100 mg PO DAILY RF: 0 sertraline 50 mg tablet 50 mg PO DAILY RF: 0
[2021-07-30] MEDS: 0.9 % Sodium Chloride 1,000 ML 999 ML IV (14:59)
[2021-07-30 15:17] LABS: Partial Thromboplastin Time 42.7 SEC (24.1-38.0)
[2021-07-30 15:18] LABS: Alanine Aminotransferase 57 U/L (0-40); Albumin Level 3.1 g/dL (3.5-5.0); Alkaline Phosphatase 611 U/L (39-117); Aspartate Amino Transferase 72 U/L (5-37); Lipase 15 U/L (8-78); Total Protein 6.2 g/dL (6.5-8.0)
--- NOTE | 2021-07-30 15:20 | PC.NURSE ---
pt alert and oriented. pt sent to ED by care manager Dr. Delgadillo for evaluation due to elevated liver enzymes. Pt has history of fatty liver and cirrhosis. He reports his skin and eyes are more yellow than usual. Patient is also followed by a care manager at [facility]. He denies sob/headache/dizziness/nausea/chest pain/fever. No loss of appetite. no apparent distress noted, pt resting quietly. requests something to eat and drink.
[2021-07-30 15:24] LABS: COVID-19 Test Negative (Negative); IDNOW Serial# 9DD0AD1C
--- NOTE | 2021-07-30 15:29 | PM.GICN ---
History of Present Illness Data of Consult Service Date: 07/30/21 Requesting physician: Mateo Rai Primary Care Provider: Raymundo Costa MD HPI Reason for consult: Elevated LFTs 35 YM with ESLD complicated by portal htn, esophageal varices and hepatic encephalopathy asked to come to [facility] due to worsening LFTs (Total bilirubin of 46) Pt complains of worsening jaundice, nausea, poor appetite, past prandial abdominal pain and diarrhea and wt loss of 5 lbs. Pt noted increased lower extermity edema last week which has improved by a decrease in salt intake. He is being followed at Liver Tx clinic at [facility] and was last seen on 07/27/21 - records have been requested. Pt had an abd MRI done earlier today and results are pending. Lab evaluation showed an increase in LFTs from baseline. IMAGING STUDIES:??03/23/21 ABD US SHOWED: Recanalized umbilical vein again noted. Slightly increased hepatic echotexture but no focal hepatic lesions seen. 03/24/21 MRCP SHOWED: Cirrhotic liver. Changes of portal hypertension with varices and marked splenomegaly. ?Normal appearance of the common bile duct with no filling defect.? ? ENDOSCOPIC STUDIES: 05/24/21 EGD SHOWED: ESOPHAGUS: Grade 1-2 esophageal varices from 30 to 40 cms without red rigoberto signs or high risk stigmata for bleeding STOMACH: Moderate erosive portal gastropathy with small amount of heme in the stomach. Biopsies were obtained from the antrum to check for H Pylori.? Prominent folds versus gastric vairices in the fundus without high risk stigmata for bleeding and Grade 2 flap valve on retroflexed examination of the cardia. DUODENUM: Multiple 8-10 mm benign appearing nodules in the apex of the bulb - biopsied.? Normal descending duodenum Plan: Above findings were reviewed with the patient and a hand out on Esophageal Varices was given in the discharge area Patient denies known family history of liver disease, colon polyps, colon cancer or other GI malignancies. 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 Patient has a remote history of upper GI bleed from esophageal varices and was treated with band ligation followed by a Nadolol. He is being followed by the [facility] (Trina Fields,ORE DIGGER: Sandra Breen MD. Pt is not considered a good candidate for liver transplant due to Pulmonary hypertension. Pt was seen on 05/[address] Grimes: 1. Unspecified cirrhosis of liver - K74.60 (Primary), Last ZEAW4H-2.1, ammonia-27, Albumin_3.7, Bili-1.9. 2. Portal hypertension - K76.6, Pancytopenia, persists. 3. Low vitamin D level - E55.9 4. Pulmonary hypertension - I27.2, [facility] 5. Hepatic encephalopathy - K72.90, Ammonia 10/31--was 30 6. Unspecified inflammatory polyarthropathy - M06.4 ? Patient continues in recovery. He is following up on a regular basis with his Pegger @ [facility]. He is taking his meds as prescribed. I counselled him on results of labs. The Vit D was the biggest concern. He is now taking the replacement load 50K weekly for 12 weeks. With increased problems with joints in his right hand and hx of Inflamatory polyarthropathy, I think it is time that he resee Rheumatology. Will have him recall department for a management consultation. (He has continued on hydrocodone for > 1 year @ this time.) TELEVISIT: TOTAL VISIT TIME 15min/ 10min/09sec with patient counseling on reports and medications, review of records, management and coordination of care. I have asked him to discuss with Dr. Cooley a referral back to see [facility] Hepatology. His US was stable but with his complex situation I would like to have him reseen sot that if he runs into problems in the future he will be known by their Department. He seems to be invested in trying to stay healthy @ this time. ? Treatment 1. Unspecified cirrhosis of liver? Notes: To pursue referral to HEPATOLOGY @ [facility] THROUGH HIS ENROLLMENT MANAGEMENT MANAGER THERE.? ? 2. Portal hypertension? Refill Furosemide Tablet, 40 MG, 1 tablet, Orally, twice a day, 30 days, 60 Tablet, Refills 5, Notes: once- Refill Magnesium Oxide Tablet, 400 MG, 1 tablet, Orally, Once a day, 30 days, 30 Tablet, Refills 5 Continue Spironolactone Tablet, 25 MG, 1 tablet with food, Orally, Once a day, Notes: refill had been sent 3. Low vitamin D level? Continue Vitamin D3 Capsule, 1.25 MG (42683 UT), 1 capsule, Orally, once a week 4. Hepatic encephalopathy? Continue Xifaxan Tablet, 550 MG, 1 tablet, Orally, Twice a day, Notes: T 5. Unspecified inflammatory polyarthropathy? Review of Systems Constitutional: Constitutional: Reports fatigue, Denies fever(s), Denies headache(s), Reports malaise, Reports poor appetite and Reports weight loss Eyes: Eyes: Denies eye discharge and Denies irritation ENT: Reports Normal hearing present, Denies dysphagia, Denies dizziness and Denies headache(s) Cardiovascular: Cardiovascular: Denies chest pain, Reports leg edema and Denies dyspnea on exertion Respiratory: Respiratory: Denies cough and Denies dyspnea on exertion Gastrointestinal: Gastrointestinal: Reports abdominal pain, Denies change in bowel habits, Denies dysphagia, Denies heartburn, Reports diarrhea and Reports other (Decreased appetite) Genitourinary: Genitourinary: Denies dysuria Musculoskeletal: Musculoskeletal: Denies back pain and Denies arthralgias Integumentary/Breasts: Skin/Breast: Denies pruritus, Denies rash and Denies jaundice Neurologic: Reports Normal hearing present, Denies Abnormal speech present, Denies dizziness, Denies headache(s) and Denies seizure-like activity Psychiatric: Psychiatric: Denies anxiety, Denies depression and Denies panic attacks Endocrine: Endocrine: Denies cold intolerance, Reports fatigue, Denies flushing and Denies heat intolerance PMFSH Past Medical History Medical History Abnormal findings on esophagogastroduodenoscopy (EGD) Chronic right-sided congestive heart failure Cirrhosis of liver Diabetes 1.5, 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 Mother Diabetes Diverticulitis Maternal Grandmother Diabetes Surgical History Surgical History History of esophagogastroduodenoscopy (EGD) History of liver biopsy Hx of cardiac cath Social History Social History Household Members: Family Household Members Other:: Lives @ his uncle, sone comes daily for remote schooling and weekends. Housing: House Do you presently have visiting nurse or other home services: No Alcohol intake: never Patient Tobacco Use Status: Current someday Tobacco user Tobacco use type: Cigarette Advance Directives: Yes Advance Directives on File: Yes Advance Directives Date on File: 03/31/21 service: No Current occupational status: disabled Meds Allergies Allergy/AdvReac Type Severity Reaction Status Date / Time No Known Allergies Allergy Verified 05/19/21 09:37 Home Medications Medication Instructions Recorded Confirmed Last Taken Type macitentan 10 mg tablet (Opsumit) 10 mg PO DAILY 10/12/20 04/15/21 03/23/21 History selexipag 1,600 mcg tablet 1,600 mcg PO BID 10/12/20 04/15/21 03/23/21 History (Uptravi) sertraline 100 mg tablet 100 mg PO DAILY 10/12/20 04/15/21 03/23/21 History sertraline 50 mg tablet 50 mg PO DAILY 10/12/20 04/15/21 03/23/21 History sildenafil (pulm.hypertension) 20 20 mg PO TID 10/12/20 04/15/21 03/23/21 13:00 History mg tablet gabapentin 300 mg capsule 300 mg PO BID 03/08/21 04/15/21 03/23/21 History furosemide 40 mg tablet 40 mg PO DAILY 03/23/21 04/15/21 03/23/21 History multivitamin 1 tab PO DAILY 03/23/21 04/15/21 03/23/21 History Physical Exam Vital Signs: Vital Signs: Last Vital Signs Temp 98.3 F 07/30/21 14:09 Pulse 72 07/30/21 14:09 Resp 18 07/30/21 14:09 BP 118/64 07/30/21 14:09 Pulse Ox 98 07/30/21 14:09 Body Mass Index 25.0 Const: General: ill appearing Nutritional Appearance: average body habitus Orientation/consciousness: patient oriented x3 Limitations: no limitations HENMT: Head: Yes normal to inspection Ears: hearing grossly normal bilaterally Mouth: Normal oral and palatal mucosa present Eyes: Sclerae: scleral abnormal (jaundice) Pupils: Equal, round and reactive pupils present Neck: Neck: Yes normal visual inspection Chest: Chest palpation & inspection: normal inspection of the chest Resp: Effort & Inspection: normal respiratory effort Auscultation: clear to auscultation bilaterally Cardio: Palpation: normal PMI Rate: regular rate Rhythm: regular rhythm Heart sounds: S1 normal heart sound present, S2 normal heart sound present and no murmurs GI: Inspection: Yes distended Palpation (GI): Soft to palpation, Tenderness to palpation present (GI) (mild diffuse tenderness), No hepatosplenomegaly present, Hepatosplenomegaly present and Splenomegaly present Auscultation: normal bowel sounds Rectal Exam - Male: Yes deferred Skin: General skin exam: no rashes or lesions noted Neuro: General: patient oriented x3, gait normal and moves all extremities Cranial nerves: Yes Equal, round and reactive pupils present and Yes Normal hearing present Speech: No Abnormal speech present Extrem: General: Yes pedal edema (1+ pitting edema bilaterally) Psych: Appearance: grossly normal Mental Status: mental status grossly normal Results Labs Labs: Liver Function 07/30/21 Range/Units 14:55 Direct Bilirubin 31.0 H (0.0-0.5) mg/dL AST 72 H (5-37) U/L ALT 57 H (0-40) U/L Alkaline Phosphatase 611 H (39-117) U/L Albumin 3.1 L (3.5-5.0) g/dL Assessment and Plan (1) Cirrhosis of liver: Status: Acute (2) Hepatic encephalopathy: Status: Acute (3) Esophageal varices in cirrhosis: Status: Acute Plan 35 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 Pt advised to come to [facility] due to marked increase in LFTs with TB of 46. Patient hospitalized at [facility] 03/23 to 03/25/21 with flu-like symptoms.? Labs revealed an increase in LFTs from baseline likely due to Entero/Rhino virus infection.? LFTS started to improve when pt was discharged home. 2020 EGD showed 2+ esophageal varices and 1+ gastric varix, Increase in LFTs can be related to acute viral hepatitis, and drug toxicity or biliary obstruction (Past ultrasound showed gallstones) or Budd Chiari.? Patient is also at increased risk for HCC given underlying cirrhosis for the past several years. RECOMMENDATIONS: 1. Repeat LFTs. 2.? Await MRI results - if it shows biliary obstruction, he is to be transferred to [facility] for an ERCP 3.? Check Hepatitis A, B and C serologies and EBV serology 4.? Continue rifaximin for hepatic encephalopathy. Dr Warren ruby on rails engineer for GI on and 08/01/21 Procedures Date of Service Date of Service: 07/30/21
[2021-07-30 15:46] LABS: Bilirubin Total 45.7 mg/dL (0.0-1.0)
[2021-07-30 16:00] VITALS: BP 120/63; PULSE 69; RESP 16; TEMP 37; O2SAT 98
[2021-07-30 18:42] VITALS: BP 120/54; PULSE 70; RESP 16; TEMP 36.8; O2SAT 98
[2021-07-30] MEDS: Morphine Sulfate 4 MG/ML CARTRIDGE IVPUSH (19:00)
[2021-07-30 20:00] VITALS: BP 118/61; PULSE 77; RESP 16; TEMP 37; O2SAT 99
--- NOTE | 2021-07-30 20:04 | PC.NURSE ---
PATIENT REPORTS PAIN LEVEL IS 4/10 STATING THAT THIS LEVEL IS TOLERABLE TO HIM AND [facility]ING [facility]SF[facility]. PATIENT IS SITTING ON THE STRETCHER. SKIN IS YELLOW/JAUNDICE, STATING HAS BEEN INCREASING RECENTLY. DID SEE HIS GI DOCTOR TODAY AND WAS TOLD TO COME TO THE EMERGENCY DEPARTMENT FOR INCREASING LIVER ENZYMES ON BLOOD WORK TODAY.
--- NOTE | 2021-07-30 20:26 | PC.NURSE ---
REPORT GIVEN TO RESISTOR INSPECTOR AT [facility], AND ARE EXPECTING HIS ARRIVAL WITH NO FURTHER QUESTIONS OR CONCERNS REGARDING PATIENTS CONDITION AT THIS TIME. AWAITING FOR TRANSPORT FROM EMS THAT HAS BEEN CALLED.
== END 2021-07-30 21:15 | disposition short-term general hospital (02) ==
PROVIDERS: Physician Assistant; Emergency Provider Emergency Medicine; PCP Internal Medicine
DX: K72.00 Acute and subacute hepatic failure without coma (principal); R79.89 Other specified abnormal findings of blood chemistry; N50.89 Other specified disorders of the male genital organs; F17.210 Nicotine dependence, cigarettes, uncomplicated; Z20.822 Contact with and (suspected) exposure to COVID-19; Z71.6 Tobacco abuse counseling
CPT/HCPCS: 36415; 82248; 83690; 85730; 87635; 93975; 96361; 96374; 99285; J2270